=== PATIENT | male | born 1950 | race Caucasian/White ===

== ENCOUNTER 2019-03-08 19:20 | Inpatient (IN) | payer OTHER ==
[~2019-03-08] VITALS: Ht 182.9 cm; Wt 152.7 kg
[2019-03-08] MEDS ORDERED: CEFEPIME 2GM/50 ML (PMX) 50 ML IVPB STA (19:27)
[2019-03-08] MEDS ORDERED: SODIUM CHLORIDE 0.9% 1L BAG IV* STA (19:27)
[2019-03-08] MEDS ORDERED: VANCOMYCIN 1 GM (PMX) 250 ML IVPB ONE (19:30)
[2019-03-08] MEDS ORDERED: ONDANSETRON 4 MG INJ ONE (20:33)
[2019-03-08] MEDS ORDERED: ACETAMINOPHEN 325 MG TAB PO PRN ×2 (21:00→22:00)
[2019-03-08] MEDS ORDERED: morphine 10 MG INJ IV ONE (21:00)
[2019-03-08] MEDS ORDERED: ONDANSETRON 4 MG INJ IV PRN (21:00)
--- NOTE | 2019-03-08 21:09 | ERD ---
ER Documentation Chief Complaint Chief Complaint bib ra from street, syncope x 2, sob, low o2 sat, aloc, acuchek 180 HPI 68-year-old male brought in by ambulance after he had 2 syncopal episodes at home. He was reportedly altered, staring into space and nonresponsive. His oxygen saturation was 90% and he was hypotensive. Accu-Chek was 180. He was started on BiPAP and brought to the ER for evaluation. EKG showed a paced rhyth m. There was concern for possible STEMI. When the patient arrived, he denies any chest pain. He is more awake and oriented per EMS than he was when they first picked him up. Patient denies any chest pain. He only complains of lightheadedness and dizziness. No headache, shortness of breath, recent fevers or chills. He is urinating normally. Family later arrived at bedside and states that the patient always has low blood pressure and is "dying". He is a [facility] patient. He has end-stage heart failure ROS All systems reviewed and are negative except as per history of present illness. Allergies Allergies: Uncoded Allergies: IV CONTRAST (Allergy, Unknown, 03/08/19) PMhx/Soc History of Surgery: Yes (CABG) Anesthesia Reaction: No Hx Neurological Disorder: Yes (diabetic neuropathy ) Hx Respiratory Disorders: No (copd, ) Hx Cardiac Disorders: Yes (hx of mi x 2, chf, EF 25%, severe mitral regurg, moderate tricuspid regurg. Paroxysmal A. fib) Hx Psychiatric Problems: No Hx Miscellaneous Medical Probl: No Hx Substance Use: No Hx Tobacco Use: No Smoking Status: Never smoker FmHx Family History: No diabetes Physical Exam Vitals Vital Signs Date Temp Pulse Resp B/P (MAP) Pulse Ox O2 O2 Flow FiO2 Time Delivery Rate 03/08/19 98.5 69 20 69/47 (54) 100 Room Air 20:15 03/08/19 98.5 70 20 83/52 (62) 100 Room Air 19:51 03/08/19 98.1 70 15 87/52 (64) 97 Room Air 19:30 03/08/19 98.1 74 15 147/122 97 19:22 (130) Physical Exam Const: Chronically ill-appearing, on BiPAP Head: Atraumatic Eyes: Normal Conjunctiva, PERRLA, EOMI ENT: Dry mucous membranes. Normal External Ears, Nose and Mouth. Neck: Full range of motion. No meningismus. No C-spine tenderness Resp: Clear to auscultation bilaterally Cardio: Regular rate and rhythm, no murmurs Abd: Obese. Soft, non tender, non distended. Normal bowel sounds Skin: bilateral lower extremities with chronic venous stasis changes and skin breakdown. No ulcers or evidence of cellulitis Back: No midline or flank tenderness Ext: No cyanosis, symmetric l lower extremity venous stasis changes, edema bilaterally Neuro: Awake and alert, normal speech, no dysarthria, moving all extremities spontaneously. No facial asymmetry Psych: Normal Mood and Affect Result Diagram: 03/08/19192403/08/191924 Results 24 hrs Laboratory Tests Test 03/08/19 19:25 03/08/19 19:27 03/08/19 19:31 03/08/19 19:41 White Blood Count 5.1 10^3/ul Red Blood Count 2.50 10^6/ul Hemoglobin 8.6 g/dl Hematocrit 25.7 % Mean Corpuscular 102.8 fl Volume Mean Corpuscular 34.4 pg Hemoglobin Mean Corpuscular 33.5 g/dl Hemoglobin Concen t Red Cell 17.3 % Distribution Width Platelet Count 156 10^3/UL Mean Platelet 10.4 fl Volume Immature 0.600 % Granulocytes % Neutrophils % 75.4 % Lymphocytes % 12.9 % Monocytes % 10.3 % Eosinophils % 0.6 % Basophils % 0.2 % Nucleated Red 0.0 /100WBC Blood Cells % Immature 0.030 10^3/ul Granulocytes # Neutrophils # 3.8 10^3/ul Lymphocytes # 0.7 10^3/ul Monocytes # 0.5 10^3/ul Eosinophils # 0.0 10^3/ul Basophils # 0.0 10^3/ul Nucleated Red 0.0 10^3/ul Blood Cells # Prothrombin Time 24.0 Sec Prothrombin Time 1.9 Ratio INR International 2.14 Normalized Ratio Activated 53.2 Sec Partial Thrombopl ast Time D-Dimer 440.01 ng/ml D-Dimer Comment Sodium Level 132 mmol/L Potassium Level 4.8 mmol/L Chloride Level 97 mmol/L Carbon Dioxide 18 mmol/L Level Anion Gap 17 Blood Urea 85 mg/dl Nitrogen Creatinine 2.40 mg/dl Est Glomerular 27 mL/min Filtrat Rate mL/min Glucose Level 136 mg/dl Calcium Level 8.6 mg/dl Total Bilirubin 0.2 mg/dl Direct Bilirubin 0.00 mg/dl Indirect 0.2 mg/dl Bilirubin Aspartate Amino 37 IU/L Transf (AST/SGOT) Alanine 22 IU/L Aminotransferase (ALT/SGPT) Alkaline 161 IU/L Phosphatase Troponin I 0.166 ng/ml B-Type 4180 PG/ML Natriuretic Peptide Total Protein 6.6 g/dl Albumin 3.5 g/dl Globulin 3.10 g/dl Albumin/Globulin 1.12 Ratio Blood Gas Blood venous Specimen Source Arterial Blood 03/08/2019 8:20:30 Date Drawn PM Arterial Blood VENOUS LINE Gas Puncture Site [place] Test N/A Venous Blood pH 7.320 Venous Blood pCO2 41.9 mmHG (Temp Corrected) Venous Blood pO2 33.0 mmHG (Temp Corrected) Venous Blood HCO3 21.1 mmol/L Venous Blood 54.2 mmHG Oxygen Saturation Venous Blood Base -4.7 mmol/L Excess Venous Blood 8.9 g/dl Total Hemoglobin Venous Blood 53.8 % Oxyhemoglobin Venous Blood 0.4 % Methemoglobin Carboxyhemoglobin 0.3 % Blood Gas 37.0 C Temperature Blood Gas NASAL CANNULA Modality FiO2 33.0 % Blood Gas MG Notified Whom Blood Gas 03/08/2019 8:28:04 Notified Time PM POC Venous 4.3 mmol/L Lactate Bedside Glucose 146 mg/dL Current Medications Medications Dose Sig/Lydia Start Time Status Last (Trade) Ordered Route PRN Stop Time Admin Dose Reason Admin Sodium 2,120 ml BOLUS OVER 2 03/08/19 DC 03/08/19 Chloride HOURS STAT 19:27 03/08/19 19:39 (NS) IV* 19:31 Cefepime HCl 50 ml @ ONCE STAT 03/08/19 DC 03/08/19 100 mls/hr IVPB 19:27 03/08/19 19:39 19:56 Vancomycin 250 ml @ ONCE ONCE 03/08/19 03/08/19 HCl 125 mls/hr IVPB 19:30 03/08/19 20:09 21:29 Ondansetron 4 mg STK-MED 03/08/19 DC HCl (Zofran ONCE .ROUTE 20:33 03/08/19 Inj) 20:34 Ondansetron 4 mg ER BRIDGE 03/08/19 03/08/19 HCl (Zofran PRN IV 21:00 03/09/19 20:40 Inj) NAUSEA/VOMITI 20:59 NG 650 mg ER BRIDGE 03/08/19 Acetaminophen PRN PO 21:00 03/09/19 (Tylenol .MILD PAIN 20:59 Tab) 1-3 OR TEMP Morphine 6 mg ONCE ONCE 03/08/19 03/08/19 Sulfate IV 21:00 03/08/19 20:49 (morphine) 21:01 Procedures/MDM EMERGENT LABS AND DIAGNOSTIC STUDIES: Lab Results above were reviewed and interpreted by me. CBC: anemia. no evidence of infection BMP: Elevated BUN and creatinine, consistent with acute kidney failure. Mild acidosis. No e/o clinically significant electrolyte abnormality, alkalosis, diabetic ketoacidosis Troponin elevated, which may be due to NSTEMI versus renal failure versus hypoperfusion due to hypotension Lactate elevated, likely secondary to tissue hypoperfusion. Less likely sepsis 12-lead EKG was interpreted by Harish Carver MD: AV paced rhythm at 60 bpm Left bundle branch block morphology No acute ST or T wave changes suggestive of acute ischemia or STEMI. Radiology Results as interpreted by Radiology below were reviewed by Consuelo Carver MD: Chest x-ray shows evidence of mild pulmonary vascular congestion with severe cardiomegaly Initial Nursing notes reviewed. Previous Medical Records requested via the Electronic Health Record. EMERGENCY DEPARTMENT COURSE / MEDICAL DECISION MAKING: Patient presents after 2 syncopal episodes with altered mental status in the field, now improved. He was taken off BiPAP and was stable on supplemental oxygen. Vitals were notable for hypotension. He was started on IV fluids and sepsis workup was initiated. However no other source of infection at this time. Broad-spectrum antibiotics were started initially but no source of infection found. Family later arrived and states that the patient is usually hypotensive at baseline. I confirmed this with the [place] physician. Per [place], the pa lenin has heart failure with normal systolic in the 80s-90s. He is reportedly DNR. I confirmed this with the patient and family. He states that he just wants to be kept comfortable and may get out of the hospital but he does not want any heroic measures or anything invasive. Labs today are consistent with acute renal failure. He likely has lactic acidosis secondary to hypotension and hypoperfusion. He also had seizure-like activity after 1 of his syncopal episodes per family.He also had an elevated troponin, likely secondary to the same reason. At this time, I have a low suspicion for serious bacterial infection. Patient will be admitted for stabilization. Accepting Care Team: Current data and ongoing care discussed. Time: Time of admission Primary Provider: Dr. Wesley Critical Care Time: 35 minutes Treatments/Evaluations: Close monitoring and treatment of unstable vital signs, cardiorespiratory, and neurologic status, while maintaining tight balance of fluid, respiratory, and cardiac interventions. This time includes discussing the case with the patient and the patients family. This time does not include all procedures stated elsewhere in this record. This time also includes reviewing old records, labs and radiological studies. This time includes examining and re- examining the patient. Additionally, this time also includes arranging care with admitting and consulting physicians. Departure Diagnosis: Primary Impression: Syncope Syncope type: unspecified Qualified Codes: R55 - Syncope and collapse Additional Impressions: Hypotension Hypotension type: unspecified hypotension type Qualified Codes: I95.9 - Hypotension, unspecified Acute on chronic renal failure Acute renal failure type: unspecified Chronic kidney disease stage: unspecified stage Qualified Codes: N17.9 - Acute kidney failure, unspecified; N18.9 - Chronic kidney disease, unspecified Non-STEMI (non-ST elevated myocardial infarction) Lactic acidosis Condition: Serious JUAN CARVER MD Mar 08, 2019 21:07
[2019-03-08] MEDS ORDERED: morphine 4 MG/ML VIAL IV STA (21:11)
--- NOTE | 2019-03-08 21:32 | HP ---
Date/Time of Note Date/Time of Note DATE: 03/08/19 TIME: 21:32 Assessment/Plan VTE Prophylaxis SCD applied (from Ns): No SCD contraindicated: other Pharmacological prophylaxis: heparin Lines/Catheters [facility] [place] [place] Assessment/Plan Hospital Course This is a 68-year-old male being admitted to the telemetry floor for: #1 volume overload : Secondary to severe systolic CHF, chronic kidney disease. Patient has AICD. Will check an echocardiogram to assess heart function. Patient did receive 2 L of normal saline in the emergency department. Will stop normal saline. Will give the patient albumin as well as metolazone and Lasix for aggressive IV diuresis. Given patient's low blood pressures as well will give patient p.o. Midodrine. Monitor urine output. Will consult cardiology dr. rucker. Will check an abdominal ultrasound to assess for need for therapeutic paracentesis. venous dopplers bilaterally to rule out dvt. #2 syncopal episode: Likely multifactorial secondary to low blood pressures along with severe CHF exacerbation. Will check an echocardiogram, will check carotid Dopplers. #3 elevated troponin: Type I versus type II. Patient denies any chest pain. Given his syncope will trend cardiac enzymes. This likely could be a type II in the setting of volume overload state as well as chronic kidney disease. Check an echocardiogram #4 acute on chronic CHF exacerbation:, Will check an echocardiogram, diuresis, please see #1. #5 lactic acidosis: Likely secondary to hypoxia, hypoperfusion, volume overload state. Patient did receive 2 L of normal saline however patient does appear to be severely volume overloaded. Will hold any further administration of IV fluids. We will give the patient aggressive IV diuresis. Patient does have urinary tract infection. Will treat with ceftriaxone 1 g every 24 hours. #6 hypotension: Patient does have a history of low blood pressures, that also likely is a component of volume overload state. Will provide Midodrine, consult cardiology and neurology. #7 chronic kidney disease stage III: I do not have a baseline creatinine. Current creatinine is 2.4. Patient is significantly volume overloaded. We will give the patient Zaroxolyn as well as Lasix and albumin for fluid diuresis. Wi ll consult nephrology. Will avoid nephrotoxic agents. Avoid NSAIDs. Renal ultrasound. No BESSIE inhibitor at the current time until were able to establish his baseline. #8 coronary urgency: Patient has a history of MD x2, CABG. will need to confirm patient's home medications and resume. Patient has a pacemaker/AICD. #9 History of atrial fibrillation: Currently patient is in a paced rhythm. We will need to find out if patient is on anticoagulation. #10 hyponatremia: Secondary likely to volume older state, IV diuresis monitor serum sodium level #11 macrocytic anemia: No signs of bleeding at the current time. Follow-up outpatient #12 prediabetes: Check hemoglobin A1c #13 morbid obesity: We will check hemoglobin A 1C, lipid panel, TSH DVT GI prophylaxis: Heparin subcu, no GI prophylaxis indicated CODE STATUS: Patient is a DNR/DNI as per the family. Family does not want aggressive treatment such as central line for any procedures for either. Further treatment strategy will be implemented as per the clinical course. We will need to confirm with the family regarding patient's home medications and resume as indicated, patient is a [facility] patient and will need to transfer the patient once he is deemed stable. Result Diagram: 03/08/19192403/08/191924 Results 24hrs Laboratory Tests Test 03/08/19 19:25 03/08/19 19:27 03/08/19 19:31 03/08/19 19:41 White Blood Count 5.1 Red Blood Count 2.50 L Hemoglobin 8.6 L Hematocrit 25.7 L Mean Corpuscular 102.8 H Volume Mean Corpuscular 34.4 H Hemoglobin Mean Corpuscular 33.5 Hemoglobin Concent Red Cell 17.3 H Distribution Width Platelet Count 156 Mean Platelet 10.4 Volume Immature 0.600 H Granulocytes % Neutrophils % 75.4 Lymphocytes % 12.9 L Monocytes % 10.3 Eosinophils % 0.6 Basophils % 0.2 Nucleated Red 0.0 Blood Cells % Immature 0.030 Granulocytes # Neutrophils # 3.8 Lymphocytes # 0.7 L Monocytes # 0.5 Eosinophils # 0.0 Basophils # 0.0 Nucleated Red 0.0 Blood Cells # Prothrombin Time 24.0 H Prothrombin Time 1.9 Ratio INR International 2.14 Normalized Ratio Activated 53.[address] Time D-Dimer 440.01 D-Dimer Comment Sodium Level 132 L Potassium Level 4.8 Chloride Level 97 Carbon Dioxide 18 L Level Anion Gap 17 H Blood Urea 85 H Nitrogen Creatinine 2.40 H Est Glomerular 27 L Filtrat Rate mL/min Glucose Level 136 Calcium Level 8.6 Total Bilirubin 0.2 Direct Bilirubin 0.00 Indirect Bilirubin 0.2 Aspartate Amino 37 Transf (AST/SGOT) Alanine 22 Aminotransferase ( ALT/SGPT) Alkaline 161 H Phosphatase Troponin I 0.166 *H B-Type Natriuretic 4180 H Peptide Total Protein 6.6 Albumin 3.5 Globulin 3.10 Albumin/Globulin 1.12 Ratio Blood Gas Specimen Blood venous Source Arterial Blood 03/08/2019 8:20:30 Date Drawn PM Arterial Blood Gas VENOUS LINE Puncture Site [place] Test N/A Venous Blood pH 7.320 L Venous Blood pCO2 41.9 (Temp Corrected) Venous Blood pO2 33.0 H (Temp Corrected) Venous Blood HCO3 21.1 L Venous Blood 54.2 L Oxygen Saturation Venous Blood Base -4.7 Excess Venous Blood Total 8.9 Hemoglobin Venous Blood 53.8 Oxyhemoglobin Venous Blood 0.4 Methemoglobin Carboxyhemoglobin 0.3 Blood Gas 37.0 Temperature Blood Gas Modality NASAL CANNULA FiO2 33.0 Blood Gas Notified MG Whom Blood Gas Notified 03/08/2019 8:28:04 Time PM POC Venous Lactate 4.3 *H Bedside Glucose 146 HPI/ROS Admit Date/Time Admit Date/Time Hx of Present Illness cc; syncope, This is a 68-year-old male brought in by ambulance after he had 2 syncopal episodes at home. He was reportedly altered, staring into space and nonresponsive. His oxygen saturation was 90% and he was hypotensive. Accu-Chek was 180. He was started on BiPAP and brought to the ER for evaluation. EKG showed a paced rhythm. When the patient arrived, he denies any chest pain. He is more awake and oriented per EMS than he was when they first picked him up. Patient denies any chest pain. He only complains of lightheadedness and dizziness. He does report that over the last week he has been feeling slightly short of breath at times. Family later arrived at bedside and states that the patient always has low blood pressure and is "dying". He is a [facility] patient. He does have a history of chronic kidney disease stage III along with CHF and has an AICD as per the family. Family does report that the patient does have low blood pressures at home. They also reports that he does ambulate though it is limited at home. He is also been dealing with cellulitis of his right thigh which she was on antibiotics for. Allergies: IV contrast Medications: See JAN ROS Const: As per HPI Eyes : No pain discharge or redness or change in visual acuity ENT: No pain, sore throat, congestion, congestion, dysphagia or discharge Respiratory: As per HPI Cardiovascular: As per HPI GI : no change in appetite, abdominal pain, nausea, vomiting, diarrhea, constip ation, or change in the color his stool Genitourinary: No dysuria, hematuria, flank pain , discharge or CVA tenderness Musculoskeletal: No joint pain, back pain, neck pain, restricted range of motion in neck or joints Skin: As per HPI Neuro: No headache, dizziness, syncope, seizure, focal weakness Endocrine: No polyuria, polydipsia, temperature intolerance Psych: No hallucination, depression, anxiety or suicidal ideation PMH/Family/Social Past Medical History Systolic CHF, chronic kidney disease stage III, AICD, coronary disease, MD x2, A. fib, prediabetes Medications Current Medications Ondansetron HCl (Zofran Inj) 4 mg ER BRIDGE PRN IV NAUSEA/VOMITING Last administered on 03/08/19at 20:40; Admin Dose 4 MG; Start 03/08/19 at 21:00; Stop 03/09/19 at 20:59 Acetaminophen (Tylenol Tab) 650 mg ER BRIDGE PRN PO .MILD PAIN 1-3 OR TEMP; Start 03/08/19 at 21:00; Stop 03/09/19 at 20:59 Uncoded Allergies: IV CONTRAST (Allergy, Unknown, 03/08/19) Past Surgical History CABG, cardioversion, cardiac stents Family History Significant Family History: no pertinent family hx Social History Alcohol Use: none Smoking Status: Never smoker Drug Use: none Exam/Review of Systems Vital Signs Vitals Vital Signs Date Temp Pulse Resp B/P (MAP) Pulse Ox O2 O2 Flow FiO2 Time Delivery Rate 03/08/19 70 19 88/54 (65) 100 Nasal 3.5 21:00 Cannula 03/08/19 98.5 20:15 Exam Exam General: Patient is currently lying in bed he does not appear to be in any acute distress, HEENT: Atraumatic, normocephalic. The pupils are equal, round and reactive. Extraocular motor are intact Neck: Supple with full range of motion. Distended neck veins Chest: Nontender Lungs: Bilateral rales and crackles, nonlabored breathing Heart: Normal S1-S2, Regular rhythm and rate. Positive JVD Abdomen: Morbidly obese, abdominal distention with possible ascites, nondistended , bowel sounds are present. No guarding no rebound tenderness , No masses or organomegaly. No costovertebral temporal angle mass Extremities: Bilateral 3+ pitting edema of the lower extremities, chronic venous stasis changes Neurologic: Normal mental status, speech normal, cranial nerves II through XII are intact, motor and sensory are intact, Additional Comments PROCEDURE: XR Chest. CLINICAL INDICATION: Syncope TECHNIQUE: Single portable view of the chest was obtained COMPARISON: None FINDINGS: There is moderate cardiomegaly. There is a left-sided pacemaker / AICD in place. There is mild pulmonary vascular congestion. There are bilateral perihilar and lower lobe increased interstitial changes. There is no pleural effusion.. There is no pneumothorax. RPTAT: AA IMPRESSION: Moderate cardiomegaly with mild pulmonary vascular congestion. .Kelton Mike MD, MD Date Time Electronically viewed and signed by .Kelton Mike MD, MD on 03/08/2019 20:14 .S/ CC: JUAN RUTLEDGE MD [id number] ekg AV paced rhythm at 60 bpm Left bundle branch block morphology No acute ST or T wave changes suggestive of acute ischemia or STEMI. JOHNNIE KIRKLAND Mar 08, 2019 21:32
[2019-03-08] MEDS ORDERED: DOCUSATE SODIUM 100 MG CAP PO PRN (22:00)
[2019-03-08] MEDS ORDERED: MIDODRINE 5 MG TAB PO ONE (22:00)
[2019-03-08] MEDS ORDERED: NACL 0.9% 3 ML SYG IV SCH (22:00)
[2019-03-08] MEDS ORDERED: BISACODYL (EC) 5 MG TAB PO PRN (22:00)
[2019-03-08 22:22] VITALS: PULSE 70
[2019-03-08 22:38] VITALS: Ht 182.9 cm; Wt 152.7 kg
[2019-03-08 22:40] VITALS: BP 94/55; PULSE 70; RESP 20
[2019-03-08] MEDS ORDERED: METOLAZONE 5 MG TAB PO ONE (23:00)
[2019-03-08] MEDS ORDERED: FUROSEMIDE 40 MG INJ IV ONE (23:30)
[2019-03-08] MEDS: ALBUMIN HUMAN 25% 100 ML IV SCH (23:36)
[2019-03-08] MEDS: HEPARIN 5,000 UNIT/1 ML VIAL SC SCH (23:51)
[2019-03-09] VITALS (11 sets, daily range): BP systolic 83–124; BP diastolic 49–70; PULSE 63–74; RESP 16–20
[2019-03-09] MEDS ORDERED: traMADol 50 MG TAB PO PRN (01:00)
[2019-03-09] MEDS: ALBUMIN HUMAN 25% 100 ML IV SCH (01:14)
[2019-03-09] MEDS: MIDODRINE 5 MG TAB PO SCH ×3 (05:10→21:36)
[2019-03-09] MEDS: HEPARIN 5,000 UNIT/1 ML VIAL SC SCH ×2 (05:16→14:20)
[2019-03-09] MEDS ORDERED: CEFTRIAXONE 1 GM/50 ML (PMX) 50 ML IVPB SCH (07:30)
--- NOTE | 2019-03-09 09:16 | CONS ---
DATE OF ADMISSION: 03/08/2019 DATE OF CONSULTATION: 03/09/2019 TYPE OF CONSULTATION: Nephrology. REASON FOR CONSULTATION: Acute kidney injury, CKD. PHYSICIAN REQUESTING CONSULT: Dr. Kirkland. HISTORY OF PRESENT ILLNESS: This is a 68-year-old male with a past medical history of chronic kidney disease, unknown baseline creatinine, history of congestive heart failure, history of coronary arter y disease, history of AFib, history of diabetes who presents to [facility] after a syncopal episode. The patient reported that he was altered. Had a noted syncopal episode. EMS serv ices were called. The patient was placed on BiPAP, brought into the emergency room. Upon arrival, t he patient was complaining of lightheadedness, dizziness. In the emergency room, the patient had lab oratory data drawn which showed an elevated lactic acid. The patient also had a chest x-ray which sh owed moderate cardiomegaly and vascular congestion. The patient was initially treated with IV fluids and admitted to telemetry. The patient's lactic acid levels were trending down. The patient, [facility], was noted to be markedly volume overloaded and started on diuretic therapy. In terms of patient's renal history, the patient states he has underlying CKD. He is unaware of his baseline creatinine. The patient denies any hemoptysis, hematemesis, any rashes. PAST MEDICAL HISTORY: History of CKD, history of CHF, history of coronary artery disease, history of arrhythmia. PAST SURGICAL HISTORY: Includes CABG. FAMILY HISTORY: No family history of kidney disease. SOCIAL HISTORY: Does not drink, smoke, do drugs. MEDICATIONS: The patient's medications have been reviewed. REVIEW OF SYSTEMS: A 14-point review of systems was conducted. Pertinent positives stated in HPI, o therwise negative. PHYSICAL EXAMINATION: VITAL SIGNS: Blood pressure is 83/51, respiration 18, pulse 69, temperature 98.2. HEENT: Head is normocephalic. NECK: Supple. HEART: Regular rate. LUNGS: Show diminished breath sounds at the base. ABDOMEN: Soft, nontender to palpation without rebound or guarding. EXTREMITIES: Negative for clubbing, cyanosis. Diffuse edema. DERMATOLOGIC: No rashes. MUSCULOSKELETAL: No joint effusions. NEUROLOGIC: Limited exam, but no focal deficits. MEDICATIONS: The patient's medications have been reviewed. LABORATORY DATA: From 03/08/2019 was reviewed. The patient's sodium 132, BUN 85, creatinine 2.40. CBC was reviewed. Chest x-ray was reviewed. Urinalysis was reviewed. ASSESSMENT AND PLAN: This is a 68-year-old male who presents with: 1. Nonoliguric acute kidney injury with unknown baseline creatinine. Etiology of acute kidney injur y is possibly multifactorial secondary to hemodynamics, possible cardiorenal syndrome. The possibili ty of tubular injury or interstitial nephritis is a consideration as the patient's urinalysis does sh ow significant pyuria and hematuria. Plan at this point is to do a full evaluation. We will repeat a UA with microanalysis. Will quantify patient's proteinuria. Will check urine electrolytes, calcul ate a fractional excretion of urea. We will check a renal ultrasound. Would continue current diuret ic regimen, but otherwise monitor renal function closely. Continue supportive care, renally dose all meds, avoid nephrotoxins. 2. Hyponatremia secondary to acute kidney injury causing decreased free water urinary excretion. Th e patient will be placed on a free water restriction, monitor closely on diuretic therapy. May also consider discontinuing metolazone which can also cause hyponatremia. 3. Anemia. Monitor hemoglobin and hematocrit levels. 4. Mineral bone disorder, monitor calcium and phosphorus levels. 5. Acute decompensated heart failure. The patient is grossly volume overloaded. Continue current d iuretic regimen. Monitor hemodynamics, electrolytes closely. 6. Hypertension. Etiology may be secondary to congestive heart failure. Continue current medical m anagement, continue diuretic therapy. If the patient's blood pressure should further decline, he may require ionotropic support. Consider cardiology evaluation. 7. Lactic acidosis, etiology secondary to hemodynamics, CHF. The patient is currently on diuretic t herapy. The patient may require inotropic support. Monitor and trend lactic acid levels closely. 8. Non-STEMI. Continue medical management. 9. Systemic inflammatory response syndrome, possible sepsis. Underlying source unclear. Chest x-ra ys were reviewed. Questionable cellulitis. Continue to monitor. Continue antibiotic therapy. Thank you, Dr. Kirkland, for this interesting consult. It will be a pleasure to follow the patient wi th you throughout the hospital course. Dictated By: MARY ARMANDO DO NR/NTS Conf#: [id number] DID#: [id number] CC: JESUS PEDRO MD; JOHNNIE KIRKLAND MD;*[facility]*
[2019-03-09] MEDS: FUROSEMIDE 40 MG INJ IV SCH ×2 (11:19→17:37)
--- NOTE | 2019-03-09 13:40 | PN ---
Date/Time of Note Date/Time of Note DATE: 03/09/19 TIME: 13:40 Assessment/Plan VTE Prophylaxis Risk score (from Ns)>0 risk: 8 SCD applied (from [facility] No SCD contraindicated: other Pharmacological prophylaxis: heparin Lines/Catheters IV Catheter Type [facility]from [facility] Saline Lock Urinary Cath still in place: Yes Reason Cath still needed: other (indicate) Assessment/Plan Hospital Course Subjective : nicole is tugging, feels the need to urinate depite nicole , change to condom cath o: General: A&O x3, answering questions appropriately, lethargic, "cranky ?", obese HEENT: NC/ AT. PERRL. EOM intact Neck: JVD CVS: irregular, sytolic murmur . no pain on chest wall palpation Lungs: CTA b/l. no wheezing or rhonchi Abd: soft, nontender, +BS Ext: moving all extremities skin: erickson LE edema with chronic skin changes : nicole to bedside drainage with good output assessment and plan: 68 yo M with reported hx of endstage HF who was BIBA after a syncopal episode (altered, staring into space) with resp distress managed as follows : Acute hypoxic resp failure that required short course on NIPPV: improved Syncopal episode 2/2 #1 CHF exacerbation, acute on chronic, systolic and diastolic Chronic severe CM with -severe enlargement of left atrium and moderate enlargement of right atrium, moderate right ventricular systolic dysfunction / Severe enlargement of right ventricle. -Ejection fraction is visually estimated at 25 % and Stage II diastolic dysfunction -S/p Pacemaker / AICD Moderate mitral valve regurgitation. NSTEMI vs troponin leak CAD with hx of MIx2, CABG Lactic acidosis likely 2/2 hypoperfusion MAYDA on CKD with hyperkalemia hx of afib s/p "shock treatment:" Megaloblastic anemia ' UTI low HDL Hyponatremia , likely dilutional Quit smoking 1992 PLAN: Continue tele, diuresis and empiric abx await cardio review and recs, also cardio needs to clear if patient is stable for transfer to [place] Patient resides at home and is usually ambulant with a cane, will get PT eval Nephrology consult as well serial labs supportive care Result Diagram: 03/09/19 0958 03/[birth year]/1958 Results 24hrs Laboratory Tests Test 03/08/19 19:25 03/08/19 19:27 03/08/19 19:31 03/08/19 19:41 White Blood 5.1 Count Red Blood Count 2.50 L Hemoglobin 8.6 L Hematocrit 25.7 L Mean Corpuscular 102.8 H Volume Mean Corpuscular 34.4 H Hemoglobin Mean Corpuscular 33.5 Hemoglobin Nina nt Red Cell 17.3 H Distribution Width Platelet Count 156 Mean Platelet 10.4 Volume Immature 0.600 H Granulocytes % Neutrophils % 75.4 Lymphocytes % 12.9 L Monocytes % 10.3 Eosinophils % 0.6 Basophils % 0.2 Nucleated Red 0.0 Blood Cells % Immature 0.030 Granulocytes # Neutrophils # 3.8 Lymphocytes # 0.7 L Monocytes # 0.5 Eosinophils # 0.0 Basophils # 0.0 Nucleated Red 0.0 Blood Cells # Prothrombin Time 24.0 H Prothrombin Time 1.9 Ratio INR 2.14 International Normalized Ratio Activated 53.2 H Partial Thrombop last Time D-Dimer 440.01 D-Dimer Comment Sodium Level 132 L Potassium Level 4.8 Chloride Level 97 Carbon Dioxide 18 L Level Anion Gap 17 H Blood Urea 85 H Nitrogen Creatinine 2.40 H Est Glomerular 27 L Filtrat Rate mL/min Glucose Level 136 Calcium Level 8.6 Total Bilirubin 0.2 Direct Bilirubin 0.00 Indirect 0.2 Bilirubin Aspartate Amino 37 Transf (AST/SGOT ) Alanine 22 Aminotransferase (ALT/SGPT) Alkaline 161 H Phosphatase Troponin I 0.166 *H B-Type 4180 H Natriuretic Peptide Total Protein 6.6 Albumin 3.5 Globulin 3.10 Albumin/Globulin 1.12 Ratio Blood Gas Blood venous Specimen Source Arterial Blood 03/08/2019 8:20:30 Date Drawn PM Arterial Blood VENOUS LINE Gas Puncture Site [place] Test N/A Venous Blood pH 7.320 L Venous Blood 41.9 pCO2 (Temp Corrected) Venous Blood pO2 33.0 H (Temp Corrected) Venous Blood 21.1 L HCO3 Venous Blood 54.2 L Oxygen Saturation Venous Blood -4.7 Base Excess Venous Blood 8.9 Total Hemoglobin Venous Blood 53.8 Oxyhemoglobin Venous Blood 0.4 Methemoglobin Carboxyhemoglobi 0.3 n Blood Gas 37.0 Temperature Blood Gas NASAL CANNULA Modality FiO2 33.0 Blood Gas MG Notified Whom Blood Gas 03/08/2019 8:28:04 Notified Time PM POC Venous 4.3 *H Lactate Bedside Glucose 146 Test 03/08/19 21:40 03/08/19 23:02 03/09/19 05:47 03/09/19 09:20 Lactic Acid 2.1 *H Level Creatine Kinase 32 23 Creatine Kinase 3.0 4.0 Index Creatinine 0.95 0.93 Kinase MB (Mass) Troponin I 0.152 *H 0.195 *H White Blood 4.3 L Count Red Blood Count 2.36 L Hemoglobin 8.0 L Hematocrit 24.3 L Mean Corpuscular 103.0 H Volume Mean Corpuscular 33.9 H Hemoglobin Mean Corpuscular 32.9 Hemoglobin Nina nt Red Cell 17.6 H Distribution Width Platelet Count 125 L Mean Platelet 10.5 H Volume Immature 0.200 Granulocytes % Neutrophils % 73.8 Lymphocytes % 11.1 L Monocytes % 13.9 H Eosinophils % 0.5 Basophils % 0.5 Nucleated Red 0.0 Blood Cells % Immature 0.010 Granulocytes # Neutrophils # 3.1 Lymphocytes # 0.5 L Monocytes # 0.6 Eosinophils # 0.0 Basophils # 0.0 Nucleated Red 0.0 Blood Cells # Sodium Level 134 L Potassium Level 5.2 H Chloride Level 101 Carbon Dioxide 20 L Level Anion Gap 13 Blood Urea 89 H Nitrogen Creatinine 2.21 H Est Glomerular 30 L Filtrat Rate mL/min Glucose Level 95 # Hemoglobin A1c 5.7 Calcium Level 8.5 Magnesium Level 2.8 H Total Bilirubin 0.4 Direct Bilirubin 0.00 Indirect 0.4 Bilirubin Aspartate Amino 47 H Transf (AST/SGOT ) Alanine 23 Aminotransferase (ALT/SGPT) Alkaline 134 H Phosphatase Total Protein 6.1 Albumin 3.5 Globulin 2.60 Albumin/Globulin 1.34 Ratio Triglycerides 31 Level Cholesterol 97 L Level LDL Cholesterol, 66 Calculated HDL Cholesterol 25 L Cholesterol/HDL 3.8 Ratio Thyroid 2.610 Stimulating Hormone (TSH) Urine Color YELLOW Urine Clarity SLIGHTLY CLOUDY A Urine pH 6.0 Urine Specific 1.010 Niles Urine Ketones NEGATIVE Urine Nitrite NEGATIVE Urine Bilirubin NEGATIVE Urine 1+ H Urobilinogen Urine Leukocyte 2+ H Esterase Urine > 182 H Microscopic RBC Urine 86 H Microscopic WBC Urine Bacteria FEW A Urine Mucus FEW A Urine Hemoglobin 3+ H Urine Random 74.35 Creatinine Urine Random 46 Sodium Urine Glucose NEGATIVE Urine Total 103.0 H Protein Test 03/09/19 09:58 White Blood 4.4 L Count Red Blood Count 2.40 L Hemoglobin 8.2 L Hematocrit 24.7 L Mean Corpuscular 102.9 H Volume Mean Corpuscular 34.2 H Hemoglobin Mean Corpuscular 33.2 Hemoglobin Nina nt Red Cell 17.4 H Distribution Width Platelet Count 139 L Mean Platelet 10.7 H Volume Immature 0.700 H Granulocytes % Neutrophils % 77.6 H Lymphocytes % 9.6 L Monocytes % 11.2 H Eosinophils % 0.7 Basophils % 0.2 Nucleated Red 0.0 Blood Cells % Immature 0.030 Granulocytes # Neutrophils # 3.4 Lymphocytes # 0.4 L Monocytes # 0.5 Eosinophils # 0.0 Basophils # 0.0 Nucleated Red 0.0 Blood Cells # Sodium Level 135 Potassium Level 4.9 Chloride Level 101 Carbon Dioxide 24 Level Anion Gap 10 Blood Urea 87 H Nitrogen Creatinine 2.45 H Est Glomerular 26 L Filtrat Rate mL/min Glucose Level 103 Lactic Acid 1.1 Level Calcium Level 8.8 Total Bilirubin 0.5 Direct Bilirubin 0.00 Indirect 0.5 Bilirubin Aspartate Amino 30 Transf (AST/SGOT ) Alanine 27 Aminotransferase (ALT/SGPT) Alkaline 137 H Phosphatase Creatine Kinase 26 Creatine Kinase 3.4 Index Creatinine 0.88 Kinase MB (Mass) Troponin I 0.215 *H Total Protein 6.3 Albumin 3.5 Globulin 2.80 Albumin/Globulin 1.25 Ratio Exam/Review of Systems Exam Vitals Vital Signs Date Temp Pulse Resp B/P (MAP) Pulse Ox O2 O2 Flow FiO2 Time Delivery Rate 03/09/19 70 13:16 03/09/19 97.8 20 124/70 96 High Flow 11:24 (88) 03/08/19 3.5 21:40 Intake and Output 03/08/19 03/08/19 03/09/19 1515:00 23:00 07:00 IntakeIntake Total 350 ml OutputOutput Total 650 ml BalanceBalance -300 ml Results Results 24hrs Laboratory Tests Test 03/08/19 19:25 03/08/19 19:27 03/08/19 19:31 03/08/19 19:41 White Blood 5.1 Count Red Blood Count 2.50 L Hemoglobin 8.6 L Hematocrit 25.7 L Mean Corpuscular 102.8 H Volume Mean Corpuscular 34.4 H Hemoglobin Mean Corpuscular 33.5 Hemoglobin Nina nt Red Cell 17.3 H Distribution Width Platelet Count 156 Mean Platelet 10.4 Volume Immature 0.600 H Granulocytes % Neutrophils % 75.4 Lymphocytes % 12.9 L Monocytes % 10.3 Eosinophils % 0.6 Basophils % 0.2 Nucleated Red 0.0 Blood Cells % Immature 0.030 Granulocytes # Neutrophils # 3.8 Lymphocytes # 0.7 L Monocytes # 0.5 Eosinophils # 0.0 Basophils # 0.0 Nucleated Red 0.0 Blood Cells # Prothrombin Time 24.0 H Prothrombin Time 1.9 Ratio INR 2.14 International Normalized Ratio Activated 53.2 H Partial Thrombop last Time D-Dimer 440.01 D-Dimer Comment Sodium Level 132 L Potassium Level 4.8 Chloride Level 97 Carbon Dioxide 18 L Level Anion Gap 17 H Blood Urea 85 H Nitrogen Creatinine 2.40 H Est Glomerular 27 L Filtrat Rate mL/min Glucose Level 136 Calcium Level 8.6 Total Bilirubin 0.2 Direct Bilirubin 0.00 Indirect 0.2 Bilirubin Aspartate Amino 37 Transf (AST/SGOT ) Alanine 22 Aminotransferase (ALT/SGPT) Alkaline 161 H Phosphatase Troponin I 0.166 *H B-Type 4180 H Natriuretic Peptide Total Protein 6.6 Albumin 3.5 Globulin 3.10 Albumin/Globulin 1.12 Ratio Blood Gas Blood venous Specimen Source Arterial Blood 03/08/2019 8:20:30 Date Drawn PM Arterial Blood VENOUS LINE Gas Puncture Site [place] Test N/A Venous Blood pH 7.320 L Venous Blood 41.9 pCO2 (Temp Corrected) Venous Blood pO2 33.0 H (Temp Corrected) Venous Blood 21.1 L HCO3 Venous Blood 54.2 L Oxygen Saturation Venous Blood -4.7 Base Excess Venous Blood 8.9 Total Hemoglobin Venous Blood 53.8 Oxyhemoglobin Venous Blood 0.4 Methemoglobin Carboxyhemoglobi 0.3 n Blood Gas 37.0 Temperature Blood Gas NASAL CANNULA Modality FiO2 33.0 Blood Gas MG Notified Whom Blood Gas 03/08/2019 8:28:04 Notified Time PM POC Venous 4.3 *H Lactate Bedside Glucose 146 Test 03/08/19 21:40 03/08/19 23:02 03/09/19 05:47 03/09/19 09:20 Lactic Acid 2.1 *H Level Creatine Kinase 32 23 Creatine Kinase 3.0 4.0 Index Creatinine 0.95 0.93 Kinase MB (Mass) Troponin I 0.152 *H 0.195 *H White Blood 4.3 L Count Red Blood Count 2.36 L Hemoglobin 8.0 L Hematocrit 24.3 L Mean Corpuscular 103.0 H Volume Mean Corpuscular 33.9 H Hemoglobin Mean Corpuscular 32.9 Hemoglobin Nina nt Red Cell 17.6 H Distribution Width Platelet Count 125 L Mean Platelet 10.5 H Volume Immature 0.200 Granulocytes % Neutrophils % 73.8 Lymphocytes % 11.1 L Monocytes % 13.9 H Eosinophils % 0.5 Basophils % 0.5 Nucleated Red 0.0 Blood Cells % Immature 0.010 Granulocytes # Neutrophils # 3.1 Lymphocytes # 0.5 L Monocytes # 0.6 Eosinophils # 0.0 Basophils # 0.0 Nucleated Red 0.0 Blood Cells # Sodium Level 134 L Potassium Level 5.2 H Chloride Level 101 Carbon Dioxide 20 L Level Anion Gap 13 Blood Urea 89 H Nitrogen Creatinine 2.21 H Est Glomerular 30 L Filtrat Rate mL/min Glucose Level 95 # Hemoglobin A1c 5.7 Calcium Level 8.5 Magnesium Level 2.8 H Total Bilirubin 0.4 Direct Bilirubin 0.00 Indirect 0.4 Bilirubin Aspartate Amino 47 H Transf (AST/SGOT ) Alanine 23 Aminotransferase (ALT/SGPT) Alkaline 134 H Phosphatase Total Protein 6.1 Albumin 3.5 Globulin 2.60 Albumin/Globulin 1.34 Ratio Triglycerides 31 Level Cholesterol 97 L Level LDL Cholesterol, 66 Calculated HDL Cholesterol 25 L Cholesterol/HDL 3.8 Ratio Thyroid 2.610 Stimulating Hormone (TSH) Urine Color YELLOW Urine Clarity SLIGHTLY CLOUDY A Urine pH 6.0 Urine Specific 1.010 Niles Urine Ketones NEGATIVE Urine Nitrite NEGATIVE Urine Bilirubin NEGATIVE Urine 1+ H Urobilinogen Urine Leukocyte 2+ H Esterase Urine > 182 H Microscopic RBC Urine 86 H Microscopic WBC Urine Bacteria FEW A Urine Mucus FEW A Urine Hemoglobin 3+ H Urine Random 74.35 Creatinine Urine Random 46 Sodium Urine Glucose NEGATIVE Urine Total 103.0 H Protein Test 03/09/19 09:58 White Blood 4.4 L Count Red Blood Count 2.40 L Hemoglobin 8.2 L Hematocrit 24.7 L Mean Corpuscular 102.9 H Volume Mean Corpuscular 34.2 H Hemoglobin Mean Corpuscular 33.2 Hemoglobin Nina nt Red Cell 17.4 H Distribution Width Platelet Count 139 L Mean Platelet 10.7 H Volume Immature 0.700 H Granulocytes % Neutrophils % 77.6 H Lymphocytes % 9.6 L Monocytes % 11.2 H Eosinophils % 0.7 Basophils % 0.2 Nucleated Red 0.0 Blood Cells % Immature 0.030 Granulocytes # Neutrophils # 3.4 Lymphocytes # 0.4 L Monocytes # 0.5 Eosinophils # 0.0 Basophils # 0.0 Nucleated Red 0.0 Blood Cells # Sodium Level 135 Potassium Level 4.9 Chloride Level 101 Carbon Dioxide 24 Level Anion Gap 10 Blood Urea 87 H Nitrogen Creatinine 2.45 H Est Glomerular 26 L Filtrat Rate mL/min Glucose Level 103 Lactic Acid 1.1 Level Calcium Level 8.8 Total Bilirubin 0.5 Direct Bilirubin 0.00 Indirect 0.5 Bilirubin Aspartate Amino 30 Transf (AST/SGOT ) Alanine 27 Aminotransferase (ALT/SGPT) Alkaline 137 H Phosphatase Creatine Kinase 26 Creatine Kinase 3.4 Index Creatinine 0.88 Kinase MB (Mass) Troponin I 0.215 *H Total Protein 6.3 Albumin 3.5 Globulin 2.80 Albumin/Globulin 1.25 Ratio Medications Medication Current Medications Ondansetron HCl (Zofran Inj) 4 mg ER BRIDGE PRN IV NAUSEA/VOMITING Last administered on 03/08/19at 20:40; Admin Dose 4 MG; Start 03/08/19 at 21:00; Stop 03/09/19 at 20:59 Acetaminophen (Tylenol Tab) 650 mg ER BRIDGE PRN PO .MILD PAIN 1-3 OR TEMP; Start 03/08/19 at 21:00; Stop 03/09/19 at 20:59 IV Flush (NS 3 ml) 3 ml PER PROTOCOL IV ; Start 03/08/19 at 22:00 Acetaminophen (Tylenol Tab) 650 mg Q6H PRN PO .PAIN 1-3 OR TEMP; Start 03/08/19 at 22:00 Docusate Sodium (Colace) 100 mg Q12H PRN PO .CONSTIPATION; Start 03/08/19 at 22:00 Bisacodyl (Dulcolax) 5 mg DAILY PRN PO .CONSTIPATION; Start 03/08/19 at 22:00 Heparin Sodium (Porcine) (Heparin (5000 Units/1ml)) 5,000 unit Q8 SC Last administered on 03/09/19at 05:16; Admin Dose 5,000 UNIT; Start 03/08/19 at 22:00 Midodrine (Proamatine) 5 mg Q8 PO Last administered on 03/09/19at 05:10; Admin Dose 5 MG; Start 03/09/19 at 06:00 Tramadol HCl (Ultram) 100 mg Q6H PRN PO MODERATE PAIN LEVEL 4-6; Start 03/09/19 at 01:00 Ceftriaxone Sodium 50 ml @ 100 mls/hr Q24H IVPB Last administered on 03/09/19at 07:22; Admin Dose 100 MLS/HR; Start 03/09/19 at 07:30 Furosemide (Lasix) 40 mg BID DIURETICS IV Last administered on 03/09/19at 11:19; Admin Dose 40 MG; Start 03/09/19 at 09:00 TAYLOR GARAY Mar 09, 2019 13:40
[2019-03-09] MEDS: CEFEPIME 1GM/50 ML (PMX) 50 ML IVPB SCH (14:15)
--- NOTE | 2019-03-09 15:07 | RADRPT ---
Echocardiogram Report Patient Name: BIJAN OROZCO WILLIAMJRPatient ID: [id number] : 1950 (69y )Study Date: 03/09/2019 9:31:33 AM Gender: MAccession #: [id number] Tech: Vishal Piña [facility] Ref.Physician: JOHNNIE KIRKLAND Height(Cm): BSA: Weight(Kg): Quality: AdequateAccount #: Procedures: Echocardiographic Report: Transthoracic echocardiogram with complete 2D, M-Mode, and doppler examination. Indications: Congestive Heart Failure, elevated troponin. Measurements: 2D/M Mode Doppler Measurement Value Normal Range Measurement Value Normal Range LVIDd 2D 7.6 [ 4.2 - 5.8 ] cm AV Peak [place] 1.2 [ 100.0 - 170.0 ] cm/sec LVIDs 2D 6.7 [ 2.5 - 4.0 ] cm AV Peak PG 6.0 [ 2.0 - 9.0 ] mmHg LVPWd 2D 1.1 [ 0.6 - 1.0 ] cm LVOT Peak [place] 0.7 [ 70.0 - 110.0 ] cm/sec IVSd 2D 1.1 [ 0.6 - 1.0 ] cm LVOT Peak PG 2.0 [ 2.0 - 6.0 ] mmHg AoR Diam 2D 3.5 [ 2.6 - 3.4 ] cm MV E Peak [place] 1.3 [ 60.0 - 130.0 ] cm/sec EDV 2D 308.0 [ 62.0 - 150.0 ] ml MV A Peak [place] 0.4 [ 100.0 - 120.0 ] cm/sec ESV 2D 229.0 [ 21.0 - 61.0 ] ml MV E/A 3.3 [ 0.8 - 1.5 ] ratio EF 2D 25.6 [ 52.0 - 72.0 ] percent MV Decel Time 183 [ 104 - 258 ] msec LA Dimen 2D 5.5 [ 3.0 - 4.0 ] cm Lat E` [place] 0.1 [ 10.0 - 15.0 ] cm/sec Lateral E/E` 9.1 [ 1.0 - 2.0 ] ratio MV E/A 3.3 [ 0.8 - 1.5 ] ratio TR Peak [place] 2.7 [ 100.0 - 280.0 ] cm/sec TR Peak PG 28.0 mmHg RVSP 38.0 [ 10.0 - 36.0 ] mmHg Findings: Left Ventricle: Left ventricular wall thickness upper limits of normal. Severe enlargement of left ventricle cavity. Severe global left ventricular systolic dysfunction. Paradoxical septal motion consistent with RV pacemaker. Ejection fraction is visually estimated at 25 %. Tissue Doppler/Mitral Doppler indices are consistent with pseudonormalization with mildly elevated left atrial pressure (Stage II diastolic dysfunction). Right Ventricle: Moderate right ventricular systolic dysfunction. Severe enlargement of right ventricle. Pacemaker right heart. Left Atrium: There is severe enlargement of left atrium. Right Atrium: There is moderate enlargement of right atrium. Mitral Valve: Mild mitral leaflet calcification. Mild mitral annular calcification. Moderate mitral valve regurgitation. The regurgitation jet is eccentrically directed which may underestimate the severity of mitral regurgitation. Aortic Valve: No hemodynamically significant aortic stenosis by doppler. Aortic cusps appear mildly calcified. Trace aortic valve regurgitation. Tricuspid Valve: Normal appearance of the tricuspid valve. Estimated peak PA systolic pressure 42 mmHg. There is moderate tricuspid regurgitation. Pulmonic Valve: Normal pulmonic valve appearance. Pericardium: Normal pericardium with no significant pericardial effusion. Aorta: Normal aortic root. IVC: Dilated IVC without respiratory collapse consistent with elevated right atrial pressure. Conclusions: There is severe enlargement of left atrium. There is moderate enlargement of right atrium. Moderate right ventricular systolic dysfunction. Severe enlargement of right ventricle. Pacemaker right heart. Left ventricular wall thickness upper limits of normal. Severe enlargement of left ventricle cavity. Severe global left ventricular systolic dysfunction. Paradoxical septal motion consistent with RV pacemaker. Ejection fraction is visually estimated at 25 %. Tissue Doppler/Mitral Doppler indices are consistent with pseudonormalization with mildly elevated left atrial pressure (Stage II diastolic dysfunction). Mild mitral leaflet calcification. Mild mitral annular calcification. Moderate mitral valve regurgitation. The regurgitation jet is eccentrically directed which may underestimate the severity of mitral regurgitation. No hemodynamically significant aortic stenosis by doppler. Aortic cusps appear mildly calcified. Trace aortic valve regurgitation. Normal appearance of the tricuspid valve. Estimated peak PA systolic pressure 42 mmHg. There is moderate tricuspid regurgitation. Dilated IVC without respiratory collapse consistent with elevated right atrial pressure. Electronically Signed By: Tejas House 2019-03-09 15:06:32 PDT
--- NOTE | 2019-03-09 17:05 | CONS ---
Assessment/Plan Assessment/Plan Hospital Course (Demo Recall) 1. Syncope etiology unclear 2. Abnormal troponin secondary to below 3. Congestive heart failure : Acute on chronic secondary systolic and probably diastolic heart failure 3. History of severe ischemic cardiomyopathy ejection fraction 25% 5. Coronary artery disease with history of coronary bypass graft 6. History of multiple PCI 7. History of proximal atrial fibrillation currently in sinus/atrial paced rhythm 8. Hypotension 9. Rule out seizures Recommendations: I will resume patient on Pradaxa. We will try to have the pacemaker/defibrillator interrogated to see if there was any events His Coreg and ARB on hold due to his low blood pressure continue to monitor on telemetry. We will start him on statin for now. His dose of cholesterol medication at home is unavailable to me Thank you for his referral. We will continue to follow along with you JESUS PEDRO MD [facility] Consultation Date/Type/Reason Admit Date/Time Date of Consultation: Mar 09, 2019 Type of Consult Cardiology Reason for Consultation + trop . syncope Requesting Provider: JOHNNIE KIRKLAND Date/Time of Note DATE: 03/09/19 TIME: 16:59 Hx of Present Illness Interventional cardiology consultation note Chief complaint: Syncope possible seizure Reason for consult: Syncope, congestive heart failure, abnormal troponin History of present illness: Thank you for this referral. History was obtained from the patient who is a fair historian at best from discussion with his daughter and review of the chart and staff. This is a 68-year-old male with a past medical history of chronic kidney disease, unknown baseline creatinine, history of congestive heart failure, baseline ejection fraction of 25% status post ICD, history of coronary artery disease, history of P-AFib, history of diabetes who presents to [facility] after a syncopal episode. According to the daughter patient was being put into her car when he had a blank stare and was unresponsive. Patient also had urinary incontinence Chest x-ray has showed congestive heart failure. As discussed with the daughter patient appears to be in chronic congestive heart failure with significant orthopnea and lower extremity edema which has been going on for a long time. Patient also elevated creatinine as well as line blood pressure PAST MEDICAL HISTORY: History of CKD, history of CHF, ejection fraction of 25%, history of coronary artery disease, eczema atrial fibrillation status post cardioversion PAST SURGICAL HISTORY: CABG many years ago history of multiple PCI history of DC cardioversion history of ICD placement appears to be [employer] ICD per family's report FAMILY HISTORY: Multiple family members with coronary artery disease SOCIAL HISTORY: Does not drink, smoke, do drugs. Has quit smoking many years ago. Was born in [place] CODE STATUS is DNR. However patient and the family want to continue with ICD shock if needed Allergies: IV contrast Medications : He is not available but apparently patient takes Pradaxa Coreg and losartan dose of which is not clear Review of system: Patient denies all others except for above-mentioned Past Medical History Medications Current Medications IV Flush (NS 3 ml) 3 ml PER PROTOCOL IV ; Start 03/08/19 at 22:00 Acetaminophen (Tylenol Tab) 650 mg Q6H PRN PO .PAIN 1-3 OR TEMP; Start 03/08/19 at 22:00 Docusate Sodium (Colace) 100 mg Q12H PRN PO .CONSTIPATION; Start 03/08/19 at 22:00 Bisacodyl (Dulcolax) 5 mg DAILY PRN PO .CONSTIPATION; Start 03/08/19 at 22:00 Heparin Sodium (Porcine) (Heparin (5000 Units/1ml)) 5,000 unit Q8 SC Last administered on 03/09/19at 14:20; Admin Dose 5,000 UNIT; Start 03/08/19 at 22:00 Midodrine (Proamatine) 5 mg Q8 PO Last administered on 03/09/19at 14:15; Admin Dose 5 MG; Start 03/09/19 at 06:00 Tramadol HCl (Ultram) 100 mg Q6H PRN PO MODERATE PAIN LEVEL 4-6; Start 03/09/19 at 01:00 Furosemide (Lasix) 40 mg BID DIURETICS IV Last administered on 03/09/19at 11:19; Admin Dose 40 MG; Start 03/09/19 at 09:00 Cefepime HCl 50 ml @ 100 mls/hr Q24H IVPB Last administered on 03/09/19at 14:15; Admin Dose 100 MLS/HR; Start 03/09/19 at 15:00 Allergies: Uncoded Allergies: IV CONTRAST (Allergy, Unknown, 03/08/19) Social History Alcohol Use: none Smoking Status: Former smoker Drug Use: none Exam/Review of Systems Vital Signs Vitals Vital Signs Date Temp Pulse Resp B/P (MAP) Pulse Ox O2 O2 Flow FiO2 Time Delivery Rate 03/09/19 98.0 74 20 89/53 (65) 96 Room Air 15:43 03/08/19 3.5 21:40 Intake and Output 03/08/19 03/08/19 03/09/19 1515:00 23:00 07:00 IntakeIntake Total 350 ml OutputOutput Total 650 ml BalanceBalance -300 ml Exam Exam General: Obese gentleman no acute distress HEENT: NC/AT. pupils are equal. round. NECK: +JVD. no stridor. CV: RRR. systolic murmur; no gallop or rubs. PULM: no wheezing + rhonchi. GI: SOFT, NT, ND, no rebound or guarding Extremity: +B/L LE edema. no clubbing. neuro: awake and alert, OX3. Psych: calm and pleasant rectal: deferred EKG was personally showed AV paced Chest x-ray shows: Moderate cardiomegaly with mild pulmonary vascular congestion. Labs Result Diagram: 03/09/19 0958 03/09/19 0958 Results 24hrs Laboratory Tests Test 03/08/19 19:25 03/08/19 19:27 03/08/19 19:31 03/08/19 19:41 White Blood 5.1 Count Red Blood Count 2.50 L Hemoglobin 8.6 L Hematocrit 25.7 L Mean Corpuscular 102.8 H Volume Mean Corpuscular 34.4 H Hemoglobin Mean Corpuscular 33.5 Hemoglobin Nina nt Red Cell 17.3 H Distribution Width Platelet Count 156 Mean Platelet 10.4 Volume Immature 0.600 H Granulocytes % Neutrophils % 75.4 Lymphocytes % 12.9 L Monocytes % 10.3 Eosinophils % 0.6 Basophils % 0.2 Nucleated Red 0.0 Blood Cells % Immature 0.030 Granulocytes # Neutrophils # 3.8 Lymphocytes # 0.7 L Monocytes # 0.5 Eosinophils # 0.0 Basophils # 0.0 Nucleated Red 0.0 Blood Cells # Prothrombin Time 24.0 H Prothrombin Time 1.9 Ratio INR 2.14 International Normalized Ratio Activated 53.2 H Partial Thrombop last Time D-Dimer 440.01 D-Dimer Comment Sodium Level 132 L Potassium Level 4.8 Chloride Level 97 Carbon Dioxide 18 L Level Anion Gap 17 H Blood Urea 85 H Nitrogen Creatinine 2.40 H Est Glomerular 27 L Filtrat Rate mL/min Glucose Level 136 Calcium Level 8.6 Total Bilirubin 0.2 Direct Bilirubin 0.00 Indirect 0.2 Bilirubin Aspartate Amino 37 Transf (AST/SGOT ) Alanine 22 Aminotransferase (ALT/SGPT) Alkaline 161 H Phosphatase Troponin I 0.166 *H B-Type 4180 H Natriuretic Peptide Total Protein 6.6 Albumin 3.5 Globulin 3.10 Albumin/Globulin 1.12 Ratio Blood Gas Blood venous Specimen Source Arterial Blood 03/08/2019 8:20:30 Date Drawn PM Arterial Blood VENOUS LINE Gas Puncture Site [place] Test N/A Venous Blood pH 7.320 L Venous Blood 41.9 pCO2 (Temp Corrected) Venous Blood pO2 33.0 H (Temp Corrected) Venous Blood 21.1 L HCO3 Venous Blood 54.2 L Oxygen Saturation Venous Blood -4.7 Base Excess Venous Blood 8.9 Total Hemoglobin Venous Blood 53.8 Oxyhemoglobin Venous Blood 0.4 Methemoglobin Carboxyhemoglobi 0.3 n Blood Gas 37.0 Temperature Blood Gas NASAL CANNULA Modality FiO2 33.0 Blood Gas MG Notified Whom Blood Gas 03/08/2019 8:28:04 Notified Time PM POC Venous 4.3 *H Lactate Bedside Glucose 146 Test 03/08/19 21:40 03/08/19 23:02 03/09/19 05:47 03/09/19 09:20 Lactic Acid 2.1 *H Level Creatine Kinase 32 23 Creatine Kinase 3.0 4.0 Index Creatinine 0.95 0.93 Kinase MB (Mass) Troponin I 0.152 *H 0.195 *H White Blood 4.3 L Count Red Blood Count 2.36 L Hemoglobin 8.0 L Hematocrit 24.3 L Mean Corpuscular 103.0 H Volume Mean Corpuscular 33.9 H Hemoglobin Mean Corpuscular 32.9 Hemoglobin Nina nt Red Cell 17.6 H Distribution Width Platelet Count 125 L Mean Platelet 10.5 H Volume Immature 0.200 Granulocytes % Neutrophils % 73.8 Lymphocytes % 11.1 L Monocytes % 13.9 H Eosinophils % 0.5 Basophils % 0.5 Nucleated Red 0.0 Blood Cells % Immature 0.010 Granulocytes # Neutrophils # 3.1 Lymphocytes # 0.5 L Monocytes # 0.6 Eosinophils # 0.0 Basophils # 0.0 Nucleated Red 0.0 Blood Cells # Sodium Level 134 L Potassium Level 5.2 H Chloride Level 101 Carbon Dioxide 20 L Level Anion Gap 13 Blood Urea 89 H Nitrogen Creatinine 2.21 H Est Glomerular 30 L Filtrat Rate mL/min Glucose Level 95 # Hemoglobin A1c 5.7 Calcium Level 8.5 Magnesium Level 2.8 H Total Bilirubin 0.4 Direct Bilirubin 0.00 Indirect 0.4 Bilirubin Aspartate Amino 47 H Transf (AST/SGOT ) Alanine 23 Aminotransferase (ALT/SGPT) Alkaline 134 H Phosphatase Total Protein 6.1 Albumin 3.5 Globulin 2.60 Albumin/Globulin 1.34 Ratio Triglycerides 31 Level Cholesterol 97 L Level LDL Cholesterol, 66 Calculated HDL Cholesterol 25 L Cholesterol/HDL 3.8 Ratio Thyroid 2.610 Stimulating Hormone (TSH) Urine Color YELLOW Urine Clarity SLIGHTLY CLOUDY A Urine pH 6.0 Urine Specific 1.010 [place] Urine Ketones NEGATIVE Urine Nitrite NEGATIVE Urine Bilirubin NEGATIVE Urine 1+ H Urobilinogen Urine Leukocyte 2+ H Esterase Urine > 182 H Microscopic RBC Urine 86 H Microscopic WBC Urine Bacteria FEW A Urine Mucus FEW A Urine Hemoglobin 3+ H Urine Random 74.35 Creatinine Urine Random 46 Sodium Urine Glucose NEGATIVE Urine Total 103.0 H Protein Test 03/09/19 09:58 03/09/19 14:46 White Blood 4.4 L Count Red Blood Count 2.40 L Hemoglobin 8.2 L Hematocrit 24.7 L Mean Corpuscular 102.9 H Volume Mean Corpuscular 34.2 H Hemoglobin Mean Corpuscular 33.2 Hemoglobin Nina nt Red Cell 17.4 H Distribution Width Platelet Count 139 L Mean Platelet 10.7 H Volume Immature 0.700 H Granulocytes % Neutrophils % 77.6 H Lymphocytes % 9.6 L Monocytes % 11.2 H Eosinophils % 0.7 Basophils % 0.2 Nucleated Red 0.0 Blood Cells % Immature 0.030 Granulocytes # Neutrophils # 3.4 Lymphocytes # 0.4 L Monocytes # 0.5 Eosinophils # 0.0 Basophils # 0.0 Nucleated Red 0.0 Blood Cells # Sodium Level 135 Potassium Level 4.9 Chloride Level 101 Carbon Dioxide 24 Level Anion Gap 10 Blood Urea 87 H Nitrogen Creatinine 2.45 H Est Glomerular 26 L Filtrat Rate mL/min Glucose Level 103 Lactic Acid 1.1 Level Calcium Level 8.8 Total Bilirubin 0.5 Direct Bilirubin 0.00 Indirect 0.5 Bilirubin Aspartate Amino 30 Transf (AST/SGOT ) Alanine 27 Aminotransferase (ALT/SGPT) Alkaline 137 H Phosphatase Creatine Kinase 26 25 Creatine Kinase 3.4 3.2 Index Creatinine 0.88 0.81 Kinase MB (Mass) Troponin I 0.215 *H 0.222 *H Total Protein 6.3 Albumin 3.5 Globulin 2.80 Albumin/Globulin 1.25 Ratio Medications Medications Current Medications IV Flush (NS 3 ml) 3 ml PER PROTOCOL IV ; Start 03/08/19 at 22:00 Acetaminophen (Tylenol Tab) 650 mg Q6H PRN PO .PAIN 1-3 OR TEMP; Start 03/08/19 at 22:00 Docusate Sodium (Colace) 100 mg Q12H PRN PO .CONSTIPATION; Start 03/08/19 at 22:00 Bisacodyl (Dulcolax) 5 mg DAILY PRN PO .CONSTIPATION; Start 03/08/19 at 22:00 Heparin Sodium (Porcine) (Heparin (5000 Units/1ml)) 5,000 unit Q8 SC Last administered on 03/09/19 14:20; Admin Dose 5,000 UNIT; Start 03/08/19 at 22:00 Midodrine (Proamatine) 5 mg Q8 PO Last administered on 03/09/19at 14:15; Admin Dose 5 MG; Start 03/09/19 at 06:00 Tramadol HCl (Ultram) 100 mg Q6H PRN PO MODERATE PAIN LEVEL 4-6; Start 03/09/19 at 01:00 Furosemide (Lasix) 40 mg BID DIURETICS IV Last administered on 03/09/19 11:19; Admin Dose 40 MG; Start 03/09/19 at 09:00 Cefepime HCl 50 ml @ 100 mls/hr Q24H IVPB Last administered on 03/09/19 14:15; Admin Dose 100 MLS/HR; Start 03/09/19 at 15:00 JESUS PEDRO MD Mar 09, 2019 17:05
[2019-03-09] MEDS: DABIGATRAN 75 MG CAP PO SCH (21:36)
[2019-03-09] MEDS: ATORVASTATIN 40 MG TAB PO SCH (21:36)
[2019-03-10] VITALS (10 sets, daily range): BP systolic 92–110; BP diastolic 51–88; PULSE 69–80; RESP 18–20
[2019-03-10] MEDS ORDERED: HYDROCODONE/APAP (5/325) TAB PO ONE (02:35)
[2019-03-10] MEDS: MIDODRINE 5 MG TAB PO SCH ×3 (06:25→21:16)
[2019-03-10] MEDS: FUROSEMIDE 40 MG INJ IV SCH ×2 (06:26→17:42)
[2019-03-10] MEDS: DABIGATRAN 75 MG CAP PO SCH ×2 (08:17→21:16)
--- NOTE | 2019-03-10 09:14 | PN ---
DATE: 03/10/2019 SUBJECTIVE: Patient stable, no events overnight. No fevers, chills, nausea, vomiting. OBJECTIVE: VITAL SIGNS: Blood pressure is 101/57, pulse 70, respirations 20, temperature 98.5. HEENT: Head is normocephalic. NECK: Supple. HEART: Regular rate. LUNGS: Show diminished breath sounds at base. ABDOMEN: Soft, nontender to palpation without rebound or guarding. EXTREMITIES: Negative for clubbing, cyanosis. Positive edema. DERMATOLOGIC: No rashes. MUSCULOSKELETAL: No joint effusion. NEUROLOGIC: No change in exam. MEDICATIONS: Reviewed. LABORATORY DATA: From 03/10/2019 was reviewed. The patient's renal ultrasound was reviewed, showed no hydronephrosis, normal echogenicity of the kidneys. A 1.7 cm cyst is noted. ASSESSMENT AND PLAN: 1. Nonoliguric acute kidney injury on top of chronic kidney disease with previous baseline creatinin e around 1.8 to 2.0 mg/dL per patient's family. Etiology of current acute kidney injury is multifact orial secondary to hemodynamics, cardiorenal syndrome. The patient's urinalysis was reviewed. Renal ultrasound was reviewed. No obstruction noted. The patient's renal function has been stable in the last 24 hours. At this point, continue current treatment plan. Continue diuretic therapy, monitor renal function, electrolytes closely. 2. Hyponatremia secondary to acute kidney injury, improved. Continue to monitor. Continue to limit free water intake. 3. Anemia. Continue to monitor hemoglobin and hematocrit levels. 4. Mineral bone disorder, monitor calcium and phosphorus levels. 5. Acute decompensated heart failure. The patient remains volume overloaded. Continue current diur etic regimen and monitor renal function, electrolytes closely. 6. Hypotension. Blood pressure has improved. Continue to monitor closely. Etiology may be multifa ctorial secondary to sepsis, heart failure. Continue current medical management. 7. Lactic acidosis, resolved. Etiology is likely secondary to hypertension, possible sepsis. Portia nue current medical management. 8. NSTEMI. Continue current treatment plan. Dictated By: MARY ARMANDO DO NR/NTS Conf#: [id number] DID#: [id number] CC: JOHNNIE KIRKLAND MD;*End*
--- NOTE | 2019-03-10 10:04 | CONS ---
Consult Date/Type/Reason Admit Date/Time Mar 08, 2019 at 20:39 Initial Consult Date 03/09/19 Type of Consultation: cv Requesting Provider: JOHNNIE KIRKLAND Date/Time of Note DATE: 03/10/19 TIME: 10:01 Subjective Cardiology follow-up progress note Subjective: Discussed with the staff and telemetry was reviewed. Patient remains mostly in atrial paced rhythm No chest pain or pressure no syncope no presyncope breathing much better today Objective: General: Obese gentleman no acute distress HEENT: NC/AT. pupils are equal. round. NECK: +JVD. no stridor. CV: RRR. systolic murmur; no gallop or rubs. PULM: no wheezing + rhonchi. GI: SOFT, NT, ND, no rebound or guarding Extremity: +B/L LE edema. no clubbing. neuro: awake and alert, OX3. Psych: calm and pleasant rectal: deferred EKG was personally showed AV paced Chest x-ray shows: Moderate cardiomegaly with mild pulmonary vascular congestion. Objective Vitals Vital Signs Date Temp Pulse Resp B/P (MAP) Pulse Ox O2 O2 Flow FiO2 Time Delivery Rate 03/10/19 70 08:00 03/10/19 98.5 20 101/57 97 Room Air 07:25 (72) 03/08/19 3.5 21:40 Intake and Output 03/09/19 03/09/19 03/10/19 1515:00 23:00 07:00 IntakeIntake Total 100 ml 720 ml 500 ml OutputOutput Total 800 ml 600 ml 1300 ml BalanceBalance -700 ml 120 ml -800 ml Results/Medications Result Diagram: 03/10/19 0559 03/10/19 0559 Results 24 hrs Laboratory Tests Test 03/09/19 14:46 03/10/19 05:56 03/10/19 05:59 Creatine Kinase 25 Creatine Kinase Index 3.2 Creatinine Kinase MB (Mass) 0.81 Troponin I 0.222 *H Phosphorus Level 5.0 H Magnesium Level 3.0 H White Blood Count 4.9 Red Blood Count 2.63 L Hemoglobin 9.0 L Hematocrit 27.5 L Mean Corpuscular Volume 104.6 H Mean Corpuscular Hemoglobin 34.2 H Mean Corpuscular Hemoglobin Concent 32.7 Red Cell Distribution Width 17.4 H Platelet Count 156 Mean Platelet Volume 10.8 H Immature Granulocytes % 0.600 H Neutrophils % 76.7 Lymphocytes % 10.8 L Monocytes % 10.3 Eosinophils % 1.2 Basophils % 0.4 Nucleated Red Blood Cells % 0.0 Immature Granulocytes # 0.030 Neutrophils # 3.8 Lymphocytes # 0.5 L Monocytes # 0.5 Eosinophils # 0.1 Basophils # 0.0 Nucleated Red Blood Cells # 0.0 Sodium Level 138 Potassium Level 4.9 Chloride Level 103 Carbon Dioxide Level 24 Anion Gap 11 Blood Urea Nitrogen 87 H Creatinine 2.37 H Est Glomerular Filtrat Rate mL/min 27 L Glucose Level 95 Calcium Level 9.2 Total Bilirubin 0.6 Direct Bilirubin 0.00 Indirect Bilirubin 0.6 Aspartate Amino Transf (AST/SGOT) 35 Alanine Aminotransferase (ALT/SGPT) 24 Alkaline Phosphatase 159 H Total Protein 7.0 Albumin 3.9 Globulin 3.10 Albumin/Globulin Ratio 1.25 Medications Current Medications IV Flush (NS 3 ml) 3 ml PER PROTOCOL IV ; Start 03/08/19 at 22:00 Acetaminophen (Tylenol Tab) 650 mg Q6H PRN PO .PAIN 1-3 OR TEMP; Start 03/08/19 at 22:00 Docusate Sodium (Colace) 100 mg Q12H PRN PO .CONSTIPATION; Start 03/08/19 at 22:00 Bisacodyl (Dulcolax) 5 mg DAILY PRN PO .CONSTIPATION; Start 03/08/19 at 22:00 Midodrine (Proamatine) 5 mg Q8 PO Last administered on 03/10/19at 06:25; Admin Dose 5 MG; Start 03/09/19 at 06:00 Tramadol HCl (Ultram) 100 mg Q6H PRN PO MODERATE PAIN LEVEL 4-6; Start 03/09/19 at 01:00 Furosemide (Lasix) 40 mg BID DIURETICS IV Last administered on 03/10/19at 06:26; Admin Dose 40 MG; Start 03/09/19 at 09:00 Cefepime HCl 50 ml @ 100 mls/hr Q24H IVPB Last administered on 03/09/19at 14:15; Admin Dose 100 MLS/HR; Start 03/09/19 at 15:00 Dabigatran (PRADaxa) 75 mg BID PO Last administered on 03/10/19at 08:17; Admin Dose 75 MG; Start 03/09/19 at 21:00 Atorvastatin Calcium (Lipitor) 40 mg HS PO Last administered on 03/09/19at 21:36; Admin Dose 40 MG; Start 03/09/19 at 21:00 Assessment/Plan Hospital Course (Demo Recall) 1. Syncope etiology unclear: ICD was interrogated on 03/10/2019 I personally reviewed which shows no evidence of DVT or any cardiac event that would correspond to his syncopal episode 2. Abnormal troponin secondary to below 3. Congestive heart failure : Acute on chronic secondary systolic and probably diastolic heart failure 3. History of severe ischemic cardiomyopathy ejection fraction 25% 5. Coronary artery disease with history of coronary bypass graft 6. History of multiple PCI 7. History of proximal atrial fibrillation currently in sinus/atrial paced rhythm 8. Hypotension 9. Rule out seizures Recommendations: Continue with Pradaxa. defibrillator was interrogated on 03/10/2019 which showed normal functioning ICD with no recent events His Coreg and ARB on hold due to his low blood pressure continue to monitor on telemetry. Continue with a statin and adjust as needed Awaiting transfer to [place] insurance reason Thank you for his referral. We will continue to follow along with you JESUS PEDRO MD [facility] JESUS PEDRO MD Mar 10, 2019 10:04
[2019-03-10] MEDS: CEFEPIME 1GM/50 ML (PMX) 50 ML IVPB SCH (14:06)
[2019-03-10] MEDS: ATORVASTATIN 40 MG TAB PO SCH (21:16)
[2019-03-11] VITALS (9 sets, daily range): BP systolic 98–113; BP diastolic 52–59; PULSE 70–72; RESP 18–20
[2019-03-11] MEDS: MIDODRINE 5 MG TAB PO SCH ×3 (06:26→21:25)
[2019-03-11] MEDS: FUROSEMIDE 40 MG INJ IV SCH ×2 (06:26→17:49)
--- NOTE | 2019-03-11 06:55 | DS ---
DATE OF ADMISSION: 03/08/2019 TENTATIVE DATE OF DISCHARGE: 03/10/2019 PRESENTING COMPLAINT: A 68-year-old male brought in by ambulance from his own home after 2 syncopal episodes. He was reportedly staring into space and only responded for a few seconds. He was found to be with an oxygen saturation rate 90% with hypotension and was started on noninvasive positive pressure ventilation, and brought to the emergency room. Apparently, according to the family, the patient always has low blood pressure. He is on midodrine therapy and he is dying from end-stage congestive heart failure. He is status post AICD placement. He was recently on antibiotics for cellulitis of his right thigh. This patient was admitted and commenced on treatment for severe systolic CHF and improved, and was weaned off BiPAP therapy. As of today, he is feeling much better. Pulmonary has no further shortness of breath. He is no longer on BiPAP. He is requiring oxygen via nasal cannula and will still require further diuresis. PHYSICAL EXAMINATION: VITAL SIGNS: Temperature 98.7, pulse 69, respirations 20, blood pressure 101/58, saturations 99% on room air. GENERAL: Morbidly obese male, currently alert, oriented, and does not seem to be in any distress. HEENT: Head is normocephalic without evidence of trauma. Pupils equal and reactive. Mucous membranes are moist. Posterior pharynx clear of erythema and exudate. NECK: Supple. CHEST: With diminished breath sounds bilaterally, still with bibasilar crackles. CARDIOVASCULAR: Irregularly irregular with a systolic murmur. No pain. No chest wall palpation. ABDOMEN: Protuberant but soft, nontender with positive bowel sounds. SKIN: Still with significant bilateral lower extremity edema with chronic skin changes from chronic edema. The patient has a condom catheter to bedside drainage with good output. IMAGING STUDIES: So far, he had a chest x-ray on arrival that showed moderate cardiomegaly with mild pulmonary vascular congestion. He had a renal ultrasound that showed no hydronephrosis. He had lower extremity venous studies that showed no DVT. He had carotid Doppler studies that showed no hemodynamically significant disease; and last but not the least, he had an abdominal ultrasound that showed trace ascites in right upper quadrant. He is being seen by nephrology as well as cardiology. His final diagnoses and treatment so far is as below: 1. Acute hypoxic respiratory failure, status post short course of NIPPV 2. Syncopal episode, likely secondary to #2. 3. Congestive heart failure exacerbation, acute on chronic, both systolic and diastolic, improving. 4. Chronic severe cardiomyopathy with -enlargement of left atrium, moderate enlargement of right atrium, moderate right ventricular systolic dysfunction, enlargement of right ventricle, -ejection fraction visually estimated by echo at 25% with stage II diastolic dysfunction -status post pacemaker/AICD. 5. The patient's AICD has been interrogated without evidence of arrhythmia on interrogation. 6. Moderate mitral valve regurgitation. 7. Elevated troponin with NSTEMI, likely secondary to congestive heart failure. 8. Coronary artery disease with history of diabetes mellitus type 2 and coronary artery bypass. 9. Lactic acid secondary to hypoperfusion that has trended down. 10. Acute kidney injury on chronic kidney disease with hyperkalemia, improved. 11. History of atrial fibrillation, status post ablation? in the past, currently rate controlled. 12. Megaloblastic anemia, improved. 13. Urinary tract infection, on antibiotics. 14. Low HDL, on statin. 15. Dilutional hyponatremia, improving. 16. Previous tobacco use, quit in 1992. PLAN: At this time, the plan is to continue in-house diuresis to optimize the patient. Cardiology continues to follow the patient. Continue antibiotics for urinary tract infection. The patient is also continued on midodrine for which he has been on chronically for hypotension. Further interventions will depend on his clinical course. At this time, he is stable for transfer to telemetry floor at [facility]. Further intervention at [facility] will be per admitting physician. Time spent so far on transfer coordination has been more than 45 minutes. Dictated By: TAYLOR GARAY MD BA/NTS Conf#: [id number] DID#: [id number] CC: JOHNNIE KIRKLAND MD;*EndCC* MTDD
[2019-03-11] MEDS: DABIGATRAN 75 MG CAP PO SCH ×2 (08:05→21:25)
--- NOTE | 2019-03-11 08:08 | CONS ---
Consult Date/Type/Reason Admit Date/Time Mar 08, 2019 at 20:39 Initial Consult Date 03/09/19 Type of Consultation: cv Requesting Provider: JOHNNIE KIRKLAND Date/Time of Note DATE: 03/11/19 TIME: 08:07 Subjective Cardiology follow-up progress note Subjective: Discussed with the staff and telemetry was reviewed. Patient remains mostly in atrial paced rhythm No chest pain or pressure no syncope no presyncope breathing much better today Cannot sleep well at nighttime because of lower back pain Objective: General: Obese gentleman no acute distress HEENT: NC/AT. pupils are equal. round. NECK: +JVD. no stridor. CV: RRR. systolic murmur; no gallop or rubs. PULM: no wheezing + rhonchi. GI: SOFT, NT, ND, no rebound or guarding Extremity: +B/L LE edema. no clubbing. neuro: awake and alert, OX3. Psych: calm and pleasant rectal: deferred EKG was personally showed AV paced Chest x-ray shows: Moderate cardiomegaly with mild pulmonary vascular co ngestion. Objective Vitals Vital Signs Date Temp Pulse Resp B/P (MAP) Pulse Ox O2 O2 Flow FiO2 Time Delivery Rate 03/11/19 98.4 72 20 105/57 99 Room Air 07:27 (73) 03/08/19 3.5 21:40 Intake and Output 03/10/19 03/10/19 03/11/19 1515:00 23:00 07:00 IntakeIntake Total 50 ml 800 ml 400 ml OutputOutput Total 4300 ml 1600 ml BalanceBalance 50 ml -3500 ml -1200 ml Results/Medications Result Diagram: 03/11/1961803/11/1919 Results 24 hrs Laboratory Tests Test 03/11/19 06:19 White Blood Count 5.4 Red Blood Count 2.60 L Hemoglobin 9.0 L Hematocrit 27.0 L Mean Corpuscular Volume 103.8 H Mean Corpuscular Hemoglobin 34.6 H Mean Corpuscular Hemoglobin Concent 33.3 Red Cell Distribution Width 17.5 H Platelet Count 161 Mean Platelet Volume 10.4 Immature Granulocytes % 0.400 Neutrophils % 75.8 Lymphocytes % 10.4 L Monocytes % 11.5 H Eosinophils % 1.5 Basophils % 0.4 Nucleated Red Blood Cells % 0.0 Immature Granulocytes # 0.020 Neutrophils # 4.1 Lymphocytes # 0.6 L Monocytes # 0.6 Eosinophils # 0.1 Basophils # 0.0 Nucleated Red Blood Cells # 0.0 Sodium Level 137 Potassium Level 4.3 Chloride Level 101 Carbon Dioxide Level 28 Anion Gap 8 Blood Urea Nitrogen 52 #H Creatinine 1.91 H Est Glomerular Filtrat Rate mL/min 35 L Glucose Level 95 Calcium Level 9.4 Total Bilirubin 0.8 Direct Bilirubin 0.00 Indirect Bilirubin 0.8 Aspartate Amino Transf (AST/SGOT) 31 Alanine Aminotransferase (ALT/SGPT) 28 Alkaline Phosphatase 157 H Total Protein 7.2 Albumin 3.9 Globulin 3.30 H Albumin/Globulin Ratio 1.18 Medications Current Medications IV Flush (NS 3 ml) 3 ml PER PROTOCOL IV ; Start 03/08/19 at 22:00 Acetaminophen (Tylenol Tab) 650 mg Q6H PRN PO .PAIN 1-3 OR TEMP; Start 03/08/19 at 22:00 Docusate Sodium (Colace) 100 mg Q12H PRN PO .CONSTIPATION; Start 03/08/19 at 22:00 Bisacodyl (Dulcolax) 5 mg DAILY PRN PO .CONSTIPATION; Start 03/08/19 at 22:00 Midodrine (Proamatine) 5 mg Q8 PO Last administered on 03/11/19at 06:26; Admin Dose 5 MG; Start 03/09/19 at 06:00 Tramadol HCl (Ultram) 100 mg Q6H PRN PO MODERATE PAIN LEVEL 4-6; Start 03/09/19 at 01:00 Furosemide (Lasix) 40 mg BID DIURETICS IV Last administered on 03/11/19at 06:26; Admin Dose 40 MG; Start 03/09/19 at 09:00 Cefepime HCl 50 ml @ 100 mls/hr Q24H IVPB Last administered on 03/10/19at 14:06; Admin Dose 100 MLS/HR; Start 03/09/19 at 15:00 Dabigatran (PRADaxa) 75 mg BID PO Last administered on 03/11/19at 08:05; Admin Dose 75 MG; Start 03/09/19 at 21:00 Atorvastatin Calcium (Lipitor) 40 mg HS PO Last administered on 03/10/19at 21:16; Admin Dose 40 MG; Start 03/09/19 at 21:00 Assessment/Plan Hospital Course (Demo Recall) 1. Syncope etiology unclear: ICD was interrogated on 03/10/2019 I personally reviewed which shows no evidence of DVT or any cardiac event that would correspond to his syncopal episode 2. Abnormal troponin secondary to below 3. Congestive heart failure : Acute on chronic secondary systolic and probably diastolic heart failure 3. History of severe ischemic cardiomyopathy ejection fraction 25% 5. Coronary artery disease with history of coronary bypass graft 6. History of multiple PCI 7. History of proximal atrial fibrillation currently in sinus/atrial paced rhythm 8. Hypotension 9. Rule out seizures Recommendations: Continue with Pradaxa. defibrillator was interrogated on 03/10/2019 which showed normal functioning ICD with no recent events We will start the patient on low-dose beta-quinn Continue with a statin and adjust as needed Awaiting transfer to [facility] Thank you for his referral. We will continue to follow along with you JESUS PEDRO MD [facility] JESUS PEDRO MD Mar 11, 2019 08:08
--- NOTE | 2019-03-11 09:23 | PN ---
DATE: 03/11/2019 SUBJECTIVE: The patient is stable. No events overnight. The patient has had good urinary output. No fevers, chills, nausea, vomiting. OBJECTIVE: VITAL SIGNS: Blood pressure is 105/57, pulse 70, respirations 20, temperature 98.4. HEENT: Head is normocephalic. NECK: Supple. HEART: Regular rate. LUNGS: Show diminished breath sounds at the base. ABDOMEN: Soft, nontender to palpation. No rebound or guarding. EXTREMITIES: Negative for clubbing, cyanosis. The patient does have lower extremity edema. DERMATOLOGIC: No rashes. MUSCULOSKELETAL: No joint effusion. NEUROLOGIC: No change in exam. MEDICATIONS: The patient's medications have been reviewed. LABORATORY DATA: From 03/11/2019 was reviewed. Patient has a BUN of 52, creatinine 1.91. ASSESSMENT AND PLAN: 1. Nonoliguric acute kidney injury on top of chronic kidney disease with previous baseline creatinin e of 1.8 to 2.0 mg/dL. Etiology of acute kidney injury is secondary to hemodynamics, cardiorenal syn drome. The patient's renal function has been improving with diuretic therapy. The patient has had g ood urinary output over 5 liters in the last 24 hours. At this point, continue current diuretic chantel men. Continue to monitor renal function. Continue to monitor electrolytes closely. 2. Hyponatremia secondary to acute kidney injury, improved. 3. Anemia. Monitor hemoglobin and hematocrit levels. 4. Mineral bone disorder, monitor calcium and phosphorus levels. 5. Acute decompensated heart failure. The patient remains volume overloaded, improving clinically. Continue current medical management. Continue current diuretic therapy. 6. Hypertension, improved. Continue midodrine. 7. Lactic acidosis, resolved. 8. Non-STEMI. Continue medical management. Dictated By: MARY ARMANDO DO NR/NTS Conf#: [id number] DID#: [id number] CC: TAYLOR GARAY MD; JOHNNIE KIRKLAND MD; JESUS PEDRO MD;*EndCC*
[2019-03-11] MEDS: HYDROCODONE/APAP (5/325) TAB PO PRN ×2 (09:48→22:07)
--- NOTE | 2019-03-11 11:38 | PN ---
Date/Time of Note Date/Time of Note DATE: 03/11/19 TIME: 11:34 Assessment/Plan VTE Prophylaxis Risk score (from Nsg)>0 risk: 7 Pharmacological prophylaxis: heparin Lines/Catheters IV Catheter Type (from Nrsg): Saline Lock Urinary Cath still in place: Yes Reason Cath still needed: other (indicate) (condom cath) Assessment/Plan Hospital Course Subjective : no new complaints o: General: A&O x3, answering questions appropriately, obese HEENT: NC/ AT. PERRL. EOM intact Neck: JVD CVS: irregular, . no pain on chest wall palpation Lungs: CTA b/l. no wheezing or rhonchi Abd: soft, nontender, +BS Ext: moving all extremities skin: erickson LE edema with chronic skin changes : nicole to bedside drainage with good output assessment and plan: 68 yo M with reported hx of endstage HF who was BIBA after a syncopal episode (altered, staring into space) with resp distress managed as follows : Acute hypoxic resp failure that required short course on NIPPV: improved Syncopal episode 2/2 #1 CHF exacerbation, acute on chronic, systolic and diastolic Chronic severe CM with -severe enlargement of left atrium and moderate enlargement of right atrium, moderate right ventricular systolic dysfunction / Severe enlargement of right ventricle. -Ejection fraction is visually estimated at 25 % and Stage II diastolic dysfunction -S/p Pacemaker / AICD Moderate mitral valve regurgitation. NSTEMI vs troponin leak CAD with hx of MIx2, CABG Lactic acidosis likely 2/2 hypoperfusion MAYDA on CKD with hyperkalemia hx of afib s/p "shock treatment:" Megaloblastic anemia ' UTI low HDL Hyponatremia , likely dilutional Quit smoking 1992 PLAN: Continue tele, diuresis and empiric abx Transition to oral diuresis tomorrow if ok with cardio and plan to discharge if no further workup planned serial labs PT eval supportive care Result Diagram: 03/11/19 0619 03/11/19 0619 Results 24hrs Laboratory Tests Test 03/11/19 06:19 White Blood Count 5.4 Red Blood Count 2.60 L Hemoglobin 9.0 L Hematocrit 27.0 L Mean Corpuscular Volume 103.8 H Mean Corpuscular Hemoglobin 34.6 H Mean Corpuscular Hemoglobin Concent 33.3 Red Cell Distribution Width 17.5 H Platelet Count 161 Mean Platelet Volume 10.4 Immature Granulocytes % 0.400 Neutrophils % 75.8 Lymphocytes % 10.4 L Monocytes % 11.5 H Eosinophils % 1.5 Basophils % 0.4 Nucleated Red Blood Cells % 0.0 Immature Granulocytes # 0.020 Neutrophils # 4.1 Lymphocytes # 0.6 L Monocytes # 0.6 Eosinophils # 0.1 Basophils # 0.0 Nucleated Red Blood Cells # 0.0 Sodium Level 137 Potassium Level 4.3 Chloride Level 101 Carbon Dioxide Level 28 Anion Gap 8 Blood Urea Nitrogen 52 #H Creatinine 1.91 H Est Glomerular Filtrat Rate mL/min 35 L Glucose Level 95 Calcium Level 9.4 Phosphorus Level 4.2 Magnesium Level 2.7 H Total Bilirubin 0.8 Direct Bilirubin 0.00 Indirect Bilirubin 0.8 Aspartate Amino Transf (AST/SGOT) 31 Alanine Aminotransferase (ALT/SGPT) 28 Alkaline Phosphatase 157 H Total Protein 7.2 Albumin 3.9 Globulin 3.30 H Albumin/Globulin Ratio 1.18 Exam/Review of Systems Exam Vitals Vital Signs Date Temp Pulse Resp B/P (MAP) Pulse Ox O2 O2 Flow FiO2 Time Delivery Rate 03/11/19 99.0 70 20 100/59 97 Room Air 11:26 (73) 03/08/19 3.5 21:40 Intake and Output 03/10/19 03/10/19 03/11/19 1515:00 23:00 07:00 IntakeIntake Total 50 ml 800 ml 400 ml OutputOutput Total 4300 ml 1600 ml BalanceBalance 50 ml -3500 ml -1200 ml Results Results 24hrs Laboratory Tests Test 03/11/19 06:19 White Blood Count 5.4 Red Blood Count 2.60 L Hemoglobin 9.0 L Hematocrit 27.0 L Mean Corpuscular Volume 103.8 H Mean Corpuscular Hemoglobin 34.6 H Mean Corpuscular Hemoglobin Concent 33.3 Red Cell Distribution Width 17.5 H Platelet Count 161 Mean Platelet Volume 10.4 Immature Granulocytes % 0.400 Neutrophils % 75.8 Lymphocytes % 10.4 L Monocytes % 11.5 H Eosinophils % 1.5 Basophils % 0.4 Nucleated Red Blood Cells % 0.0 Immature Granulocytes # 0.020 Neutrophils # 4.1 Lymphocytes # 0.6 L Monocytes # 0.6 Eosinophils # 0.1 Basophils # 0.0 Nucleated Red Blood Cells # 0.0 Sodium Level 137 Potassium Level 4.3 Chloride Level 101 Carbon Dioxide Level 28 Anion Gap 8 Blood Urea Nitrogen 52 #H Creatinine 1.91 H Est Glomerular Filtrat Rate mL/min 35 L Glucose Level 95 Calcium Level 9.4 Phosphorus Level 4.2 Magnesium Level 2.7 H Total Bilirubin 0.8 Direct Bilirubin 0.00 Indirect Bilirubin 0.8 Aspartate Amino Transf (AST/SGOT) 31 Alanine Aminotransferase (ALT/SGPT) 28 Alkaline Phosphatase 157 H Total Protein 7.2 Albumin 3.9 Globulin 3.30 H Albumin/Globulin Ratio 1.18 Medications Medication Current Medications IV Flush (NS 3 ml) 3 ml PER PROTOCOL IV ; Start 03/08/19 at 22:00 Acetaminophen (Tylenol Tab) 650 mg Q6H PRN PO .PAIN 1-3 OR TEMP; Start 03/08/19 at 22:00 Docusate Sodium (Colace) 100 mg Q12H PRN PO .CONSTIPATION; Start 03/08/19 at 22:00 Bisacodyl (Dulcolax) 5 mg DAILY PRN PO .CONSTIPATION; Start 03/08/19 at 22:00 Midodrine (Proamatine) 5 mg Q8 PO Last administered on 03/11/19 06:26; Admin Dose 5 MG; Start 03/09/19 at 06:00 Furosemide (Lasix) 40 mg BID DIURETICS IV Last administered on 03/11/19 06:26; Admin Dose 40 MG; Start 03/09/19 at 09:00 Cefepime HCl 50 ml @ 100 mls/hr Q24H IVPB Last administered on 03/10/19 14:06; Admin Dose 100 MLS/HR; Start 03/09/19 at 15:00 Dabigatran (PRADaxa) 75 mg BID PO Last administered on 03/11/19 08:05; Admin Dose 75 MG; Start 03/09/19 at 21:00 Atorvastatin Calcium (Lipitor) 40 mg HS PO Last administered on 03/10/19 21:16; Admin Dose 40 MG; Start 03/09/19 at 21:00 Metoprolol Succinate (Toprol Xl) 12.5 mg QHS PO ; Start 03/11/19 at 21:00 Acetaminophen/ Hydrocodone Bitart ([place] (5/325)) 1 tab Q6H PRN PO MODERATE PAIN LEVEL 4-6 Last administered on 4/10/19at 09:48; Admin Dose 1 TAB; Start 03/11/19 at 10:00 TAYLOR GARAY Mar 11, 2019 11:38
[2019-03-11] MEDS: METOPROLOL (XL) 25 MG TAB PO SCH (21:00)
[2019-03-11] MEDS: ATORVASTATIN 40 MG TAB PO SCH (21:24)
[2019-03-11] MEDS: HEPARIN 5,000 UNIT/1 ML VIAL SC SCH (21:26)
[2019-03-12] VITALS (10 sets, daily range): BP systolic 92–110; BP diastolic 53–58; PULSE 69–71; RESP 18–19
[2019-03-12] MEDS: FUROSEMIDE 40 MG INJ IV SCH (06:08)
[2019-03-12] MEDS: MIDODRINE 5 MG TAB PO SCH ×3 (06:08→22:38)
--- NOTE | 2019-03-12 08:15 | CONS ---
Consult Date/Type/Reason Admit Date/Time Mar 08, 2019 at 20:39 Initial Consult Date 03/09/19 Type of Consultation: cv Requesting Provider: JOHNNIE KIRKLAND Date/Time of Note DATE: 03/12/19 TIME: 08:13 Subjective Cardiology follow-up progress note Subjective: Discussed with the staff and telemetry was reviewed. Patient remains mostly in atrial paced rhythm No chest pain or pressure no syncope no presyncope breathing much better today Objective: General: Obese gentleman no acute distress HEENT: NC/AT. pupils are equal. round. NECK: . no stridor. CV: RRR. systolic murmur; no gallop or rubs. PULM: no wheezing + rhonchi. GI: SOFT, NT, ND, no rebound or guarding Extremity: +B/L LE edema. no clubbing. neuro: awake and alert, OX3. Psych: calm and pleasant rectal: deferred EKG was personally showed AV paced Chest x-ray shows: Moderate cardiomegaly with mild pulmonary vascular congestion. Objective Vitals Vital Signs Date Temp Pulse Resp B/P (MAP) Pulse Ox O2 O2 Flow FiO2 Time Delivery Rate 03/12/19 97.9 70 18 110/56 94 07:37 (74) 03/11/19 Room Air 15:14 03/08/19 3.5 21:40 Intake and Output 03/11/19 03/11/19 03/12/19 1515:00 23:00 07:00 IntakeIntake Total 600 ml 400 ml OutputOutput Total 2650 ml 1200 ml BalanceBalance -2050 ml -800 ml Results/Medications Result Diagram: 03/12/19 0701 03/11/19 0619 Results 24 hrs Laboratory Tests Test 03/12/19 07:01 White Blood Count 4.9 Red Blood Count 2.77 L Hemoglobin 9.5 L Hematocrit 28.9 L Mean Corpuscular Volume 104.3 H Mean Corpuscular Hemoglobin 34.3 H Mean Corpuscular Hemoglobin Concent 32.9 Red Cell Distribution Width 17.3 H Platelet Count 184 Mean Platelet Volume 10.2 Immature Granulocytes % 0.400 Neutrophils % 71.4 Lymphocytes % 13.2 L Monocytes % 13.0 H Eosinophils % 1.6 Basophils % 0.4 Nucleated Red Blood Cells % 0.0 Immature Granulocytes # 0.020 Neutrophils # 3.5 Lymphocytes # 0.7 L Monocytes # 0.6 Eosinophils # 0.1 Basophils # 0.0 Nucleated Red Blood Cells # 0.0 Medications Current Medications IV Flush (NS 3 ml) 3 ml PER PROTOCOL IV ; Start 03/08/19 at 22:00 Acetaminophen (Tylenol Tab) 650 mg Q6H PRN PO .PAIN 1-3 OR TEMP; Start 03/08/19 at 22:00 Docusate Sodium (Colace) 100 mg Q12H PRN PO .CONSTIPATION; Start 03/08/19 at 22:00 Bisacodyl (Dulcolax) 5 mg DAILY PRN PO .CONSTIPATION; Start 03/08/19 at 22:00 Midodrine (Proamatine) 5 mg Q8 PO Last administered on 03/12/19at 06:08; Admin Dose 5 MG; Start 03/09/19 at 06:00 Furosemide (Lasix) 40 mg BID DIURETICS IV Last administered on 03/12/19at 06:08; Admin Dose 40 MG; Start 03/09/19 at 09:00 Dabigatran (PRADaxa) 75 mg BID PO Last administered on 03/11/19at 21:25; Admin Dose 75 MG; Start 03/09/19 at 21:00 Atorvastatin Calcium (Lipitor) 40 mg HS PO Last administered on 03/11/19at 21:24; Admin Dose 40 MG; Start 03/09/19 at 21:00 Metoprolol Succinate (Toprol Xl) 12.5 mg QHS PO ; Start 03/11/19 at 21:00 Acetaminophen/ Hydrocodone Bitart ([place] (5/325)) 1 tab Q6H PRN PO MODERATE PAIN LEVEL 4-6 Last administered on 03/11/19at 22:07; Admin Dose 1 TAB; Start 03/11/19 at 10:00 Heparin Sodium (Porcine) (Heparin (5000 Units/1ml)) 5,000 unit BID SC Last administered on 03/11/19 21:26; Admin Dose 5,000 UNIT; Start 03/11/19 at 21:00 Ceftriaxone Sodium 50 ml @ 100 mls/hr Q24H IVPB ; Start 03/12/19 at 09:00 Assessment/Plan Hospital Course (Demo Recall) 1. Syncope etiology unclear: ICD was interrogated on 03/10/2019 I personally reviewed which shows no evidence of DVT or any cardiac event that would correspond to his syncopal episode 2. Abnormal troponin secondary to below 3. Congestive heart failure : Acute on chronic secondary systolic and probably diastolic heart failure 3. History of severe ischemic cardiomyopathy ejection fraction 25% 5. Coronary artery disease with history of coronary bypass graft 6. History of multiple PCI 7. History of proximal atrial fibrillation currently in sinus/atrial paced rhythm 8. Hypotension 9. Rule out seizures Recommendations: Continue with Pradaxa. defibrillator was interrogated on 03/10/2019 which showed normal functioning ICD with no recent events cont low-dose beta-quinn Continue with a statin and adjust as needed ok to transfer to [place] insurance reason when bed available f/u renal fx. cont IV lasix for now if ok with renal Thank you for his referral. We will continue to follow along with you JESUS PEDRO MD [facility] JESUS PEDRO MD Mar 12, 2019 08:15
[2019-03-12] MEDS: CEFTRIAXONE 1 GM/50 ML (PMX) 50 ML IVPB SCH (08:35)
[2019-03-12] MEDS: DABIGATRAN 75 MG CAP PO SCH ×2 (08:35→20:51)
[2019-03-12] MEDS: HEPARIN 5,000 UNIT/1 ML VIAL SC SCH ×2 (08:43→20:55)
--- NOTE | 2019-03-12 09:13 | PN ---
DATE: 03/12/2019 SUBJECTIVE: The patient is stable, no events overnight. OBJECTIVE: VITAL SIGNS: Blood pressure is 110/56, respiration is 18, pulse 70, temperature 97.9. HEENT: Head is normocephalic. NECK: Supple. HEART: Regular rate. LUNGS: Show diminished breath sounds at the base. ABDOMEN: Soft, nontender to palpation without rebound or guarding. EXTREMITIES: Negative for clubbing, cyanosis. Trace edema. DERMATOLOGIC: No rashes. MUSCULOSKELETAL: No joint effusion. NEUROLOGIC: No change in exam. MEDICATIONS: The patient's medications have been reviewed. LABORATORY DATA: Has been reviewed. ASSESSMENT AND PLAN: 1. Nonoliguric acute kidney injury on top of chronic kidney disease with previous baseline creatinin e of 1.8 to 2.0 mg/dL. Etiology of current acute kidney injury is secondary to hemodynamics, cardior enal syndrome. The patient's renal function has improved with diuretic therapy. Renal function now at baseline. At this point, continue current treatment plan, supportive care, renally dose all meds. 2. Hyponatremia secondary to acute kidney injury, improved. 3. Anemia. Monitor hemoglobin and hematocrit levels. 4. Mineral bone disorder, monitor calcium and phosphorus levels. 5. Acute decompensated heart failure. The patient is clinically improving. Continue current diuret ic regimen, monitor renal function and electrolytes closely. Follow up with cardiology. 6. Hypotension, continue midodrine. 7. Lactic acidosis, resolved. 8. Non-STEMI. Continue medical management. Dictated By: MARY CHRISTENSEN/BRENT Conf#: [id number] DID#: [id number] CC: JESUS PEDRO MD; JOHNNIE KIRKLAND MD; TAYLOR GARAY MD;*EndCC*
[2019-03-12] MEDS: HYDROCODONE/APAP (5/325) TAB PO PRN (12:08)
[2019-03-12] MEDS ORDERED: COLC0.6T6 PO (12:13)
[2019-03-12] MEDS ORDERED: ALLO100T PO (12:13)
[2019-03-12] MEDS ORDERED: ALLOPURINOL 100 MG TAB PO SCH (13:30)
--- NOTE | 2019-03-12 14:24 | PDOCDIS ---
Discharge Instructions CONDITION [id number] Patient Condition: [id number] Stable HOME CARE INSTRUCTIONS: [id number] Diet Instructions: [id number] Low Fat /Cholesterol [id number] Special Diet: Krmrs4g low sodium ACTIVITY: [id number] Activity Restrictions: [id number] Slowly Increase Activity Rest between Activity FOLLOW UP/APPOINTMENTS Follow-up Plan Followup with your primary doctor within the next 1-2 weeks. Review your medication list with your nurse before leaving and if you need new prescriptions please let your nurse know. I have made changes to your home medications or given you new prescriptions, please let your primary doctor know as well. Stay compliant with your medications and report any side effects to your PCP or pharmacist. Return to the ER if you have any concerns and cannot reach your doctors or call your insurance company, they usually have a nurse that can help you. TAYLOR GARAY Mar 12, 2019 14:24
[2019-03-12] MEDS ORDERED: BUME1TAB PO (14:34)
[2019-03-12] MEDS ORDERED: AMOX1TAB10 PO (14:34)
[2019-03-12] MEDS ORDERED: DABI75CA2 PO (14:34)
[2019-03-12] MEDS ORDERED: MIDO5TAB PO (14:34)
[2019-03-12] MEDS ORDERED: DOCU-144 PO (14:34)
[2019-03-12] MEDS ORDERED: ATOR40TA68 PO (14:34)
--- NOTE | 2019-03-12 15:35 | DS ---
DATE OF ADMISSION: 03/08/2019 DATE OF DISCHARGE: 03/12/2019 FINAL DIAGNOSES: A 68-year-old male with reported history of end-stage heart failure who was brought in by ambulance after an episode of being altered and staring into space concerning for syncope as well as respiratory distress and managed for the followin. Acute hypoxic respiratory failure that required short course of NIPPV: Resolved. 2. Altered mentation secondary to #1: Resolved. 3. Congestive heart failure exacerbation, acute on chronic, systolic and diastolic: Much better compensated. 4. Chronic severe cardiomyopathy with severe left atrial enlargement, moderate right ventricular systolic dysfunction, ejection fraction of 25% and stage II diastolic dysfunction. 5. Status post pacemaker/AICD. 6. Moderate mitral valve regurgitation. 7. Status post non-ST elevation myocardial infarction secondary to congestive heart failure. 8. Lactic acidosis secondary to hypoperfusion, resolved. 9. Acute on chronic kidney disease with hyperkalemia: Improved, much better. 10. History of atrial fibrillation, status post "shock treatment." 11. Chronic megaloblastic anemia, stable. 12. Urinary tract infection, status post antibiotic therapy. 13. Low HDL. 14. Remote history of tobacco use, quit in 1992. CONSULTS ON THE CASE: 1. Cardiology, Jesus House MD 2. Nephrology, Roger Jamil DO INTERVENTIONS: The patient had multiple interventions includin. A 2D echocardiogram done on 03/09/2019. 2. He also had chest x-ray on 03/08/2019. 3. Renal ultrasound on 03/09/2019. 4. Lower extremity Dopplers that were negative for DVT on 03/09/2019. 5. Carotid Doppler that was incomplete study unfortunately on 03/09/2019. 6. Abdominal ultrasound was also done on 03/09/2019. Essentially, findings are summarized in the discharge summary as above. SHORT HOSPITALIZATION COURSE: Full details are available in chart for review. In summary, this patient was brought in by ambulance with altered mentation with syncopal episode and in respiratory distress and ended up requiring short course of NIPPV. He was found to have NSTEMI and severe CHF exacerbation. The patient is Do Not Resuscitate as well. He was treated with aggressive diuresis, supportive care and has done extremely well. He is doing so much better now and is stable for discharge. The patient is a [employer] member and it was thought that he will be transferred to [place]; however his transfer never did actually go through. At this time, he has been evaluated by myself and is stable for discharge. I am however awaiting cardiology and nephrology clearance to ensure no further inpatient intervention is required. DISCHARGE MEDICATIONS: For complete list, please review the patient's chart. Amendments will be done as recommended by specialist. DIET: Recommended diet is low calorie, low cholesterol, low fat, sodium diet. ACTIVITY: As tolerated. The patient usually ambulates with cane. FOLLOWUP: It is recommended to follow up with his doctor at [place] within a week of discharge. Time spent on coordination has been more than an hour. Dictated By: TAYLOR GARAY MD BA/NTS Conf#: [id number] DID#: [id number] CC: JOHNNIE KIRKLAND MD; JESUS HOUSE MD;*EndCC* MTDD
[2019-03-12] MEDS: BUMETANIDE 1 MG TAB PO SCH (17:34)
[2019-03-12] MEDS: ATORVASTATIN 40 MG TAB PO SCH (20:51)
[2019-03-12] MEDS: METOPROLOL (XL) 25 MG TAB PO SCH (20:57)
[2019-03-13] VITALS (12 sets, daily range): BP systolic 94–156; BP diastolic 51–82; PULSE 68–98; RESP 18–20
[2019-03-13] MEDS: HYDROCODONE/APAP (5/325) TAB PO PRN ×2 (04:21→14:49)
[2019-03-13] MEDS ORDERED: COLCHICINE 0.6 MG TAB PO PRN (04:30)
[2019-03-13] MEDS: BUMETANIDE 1 MG TAB PO SCH ×2 (06:16→17:48)
[2019-03-13] MEDS: MIDODRINE 5 MG TAB PO SCH ×2 (06:16→14:54)
[2019-03-13] MEDS: DABIGATRAN 75 MG CAP PO SCH ×2 (08:44→21:05)
[2019-03-13] MEDS: ALLOPURINOL 100 MG TAB PO SCH ×2 (08:44→21:05)
[2019-03-13] MEDS: CEFTRIAXONE 1 GM/50 ML (PMX) 50 ML IVPB SCH (08:44)
[2019-03-13] MEDS: HEPARIN 5,000 UNIT/1 ML VIAL SC SCH ×2 (08:57→21:15)
--- NOTE | 2019-03-13 09:01 | PN ---
DATE: 03/13/2019 SUBJECTIVE: The patient is stable, complaining about gouty arthritis pain in his toe. No other even ts noted. OBJECTIVE: VITAL SIGNS: Blood pressure is 106/56, pulse 77, respirations 20, temperature 97.4. HEENT: Head is normocephalic. NECK: Supple. HEART: Regular rate. LUNGS: Show diminished breath sounds at the base. ABDOMEN: Soft, nontender to palpation without rebound or guarding. EXTREMITIES: Negative for clubbing, cyanosis. Trace edema. MUSCULOSKELETAL: Positive tenderness to palpation in lower toe. NEUROLOGIC: No change in exam. MEDICATIONS: Reviewed. LABORATORY DATA: From 03/13/2019 was reviewed. ASSESSMENT AND PLAN: 1. Nonoliguric acute kidney injury on top of chronic kidney disease with previous baseline creatinin e of 1.8 to 2 mg/dL. Etiology of acute kidney injury is secondary to hemodynamics, cardiorenal syndr ome. The patient's renal function has improved with diuretic therapy. Currently at baseline. Portia aimee current treatment plan, supportive care, renally dose all medicines. 2. Hypernatremia, etiology is secondary to acute kidney injury. We would recommend to limit free wa ter intake and monitor. 3. Anemia. Monitor hemoglobin and hematocrit levels. 4. Mineral bone disorder. Continue to monitor calcium and phosphorus levels. 5. Acute decompensated heart failure. The patient is clinically improving. Continue current diuret ic regimen. 6. Acute gouty flare. Continue medical management. 7. Hypotension. Continue midodrine. 8. Non-ST elevation myocardial infarction. Continue current treatment plan. Dictated By: MARY CHRISTENSEN/BRENT Conf#: [id number] DID#: [id number] CC: TAYLOR GRAAY MD; JESUS PEDRO MD; JOHNNIE KIRKLAND MD;*EndCC*
--- NOTE | 2019-03-13 10:38 | PN ---
Date/Time of Note Date/Time of Note DATE: 03/13/19 TIME: 10:35 Assessment/Plan VTE Prophylaxis Risk score (from Nsg)>0 risk: 5 Pharmacological prophylaxis: heparin Lines/Catheters IV Catheter Type (from Nrsg): Saline Lock Urinary Cath still in place: No Assessment/Plan Hospital Course Subjective : toe pain, thinks its his arthritis flaring, cardiology did not clear patient for discharge yesterday objective : General: A&O x3, answering questions appropriately, obese HEENT: NC/ AT. PERRL. EOM intact Neck: JVD CVS: irregular, . no pain on chest wall palpation Lungs: CTA b/l. no wheezing or rhonchi Abd: soft, nontender, +BS Ext: moving all extremities skin: erickson LE edema with chronic skin changes : nicole to bedside drainage with good output assessment and plan: 68 yo M with reported hx of endstage HF who was BIBA after a syncopal episode (altered, staring into space) with resp distress managed as follows : Acute hypoxic resp failure that required short course on NIPPV: improved Syncopal episode 2/2 #1 CHF exacerbation, acute on chronic, systolic and diastolic Chronic severe CM with -severe enlargement of left atrium and moderate enlargement of right atrium, moderate right ventricular systolic dysfunction / Severe enlargement of right ventricle. -Ejection fraction is visually estimated at 25 % and Stage II diastolic dy sfunction -S/p Pacemaker / AICD Moderate mitral valve regurgitation. NSTEMI vs troponin leak CAD with hx of MIx2, CABG Lactic acidosis likely 2/2 hypoperfusion MAYDA on CKD with hyperkalemia hx of afib s/p "shock treatment:" Megaloblastic anemia ' UTI low HDL Hyponatremia , likely dilutional Quit smoking 1992 DNR PLAN: Continue tele, diuresis and empiric abx Cardiology preferring that patient be transferred to [facility] for further workup per his primary binding end stitcher. admitting manager notified. Awaiting either cardiology clearance for discharge or transfer to [place]. Continue serial labs PT eval noted, recommending front wheel walker for now and not cane. supportive care Result Diagram: 03/13/19 0554 03/13/19 0554 Results 24hrs Laboratory Tests Test 03/13/19 05:54 White Blood Count 4.5 L Red Blood Count 2.49 L Hemoglobin 8.6 L Hematocrit 26.2 L Mean Corpuscular Volume 105.2 H Mean Corpuscular Hemoglobin 34.5 H Mean Corpuscular Hemoglobin Concent 32.8 Red Cell Distribution Width 17.2 H Platelet Count 172 Mean Platelet Volume 10.1 Immature Granulocytes % 0.700 H Neutrophils % 68.4 Lymphocytes % 12.6 L Monocytes % 16.6 H Eosinophils % 1.3 Basophils % 0.4 Nucleated Red Blood Cells % 0.0 Immature Granulocytes # 0.030 Neutrophils # 3.1 Lymphocytes # 0.6 L Monocytes # 0.7 Eosinophils # 0.1 Basophils # 0.0 Nucleated Red Blood Cells # 0.0 Sodium Level 134 L Potassium Level 3.8 Chloride Level 96 L Carbon Dioxide Level 27 Anion Gap 11 Blood Urea Nitrogen 63 H Creatinine 1.52 H Est Glomerular Filtrat Rate mL/min 46 L Glucose Level 90 Calcium Level 8.9 Phosphorus Level 3.7 Magnesium Level 2.2 Exam/Review of Systems Exam Vitals Vital Signs Date Temp Pulse Resp B/P (MAP) Pulse Ox O2 O2 Flow FiO2 Time Delivery Rate 03/13/19 78 08:39 03/13/19 97.4 20 106/56 93 08:02 (73) 03/13/19 Room Air 04:00 Intake and Output 03/12/19 03/12/19 03/13/19 1515:00 23:00 07:00 IntakeIntake Total 650 ml OutputOutput Total 900 ml 850 ml BalanceBalance -900 ml -200 ml Results Results 24hrs Laboratory Tests Test 03/13/19 05:54 White Blood Count 4.5 L Red Blood Count 2.49 L Hemoglobin 8.6 L Hematocrit 26.2 L Mean Corpuscular Volume 105.2 H Mean Corpuscular Hemoglobin 34.5 H Mean Corpuscular Hemoglobin Concent 32.8 Red Cell Distribution Width 17.2 H Platelet Count 172 Mean Platelet Volume 10.1 Immature Granulocytes % 0.700 H Neutrophils % 68.4 Lymphocytes % 12.6 L Monocytes % 16.6 H Eosinophils % 1.3 Basophils % 0.4 Nucleated Red Blood Cells % 0.0 Immature Granulocytes # 0.030 Neutrophils # 3.1 Lymphocytes # 0.6 L Monocytes # 0.7 Eosinophils # 0.1 Basophils # 0.0 Nucleated Red Blood Cells # 0.0 Sodium Level 134 L Potassium Level 3.8 Chloride Level 96 L Carbon Dioxide Level 27 Anion Gap 11 Blood Urea Nitrogen 63 H Creatinine 1.52 H Est Glomerular Filtrat Rate mL/min 46 L Glucose Level 90 Calcium Level 8.9 Phosphorus Level 3.7 Magnesium Level 2.2 Medications Medication Current Medications IV Flush (NS 3 ml) 3 ml PER PROTOCOL IV ; Start 03/08/19 at 22:00 Acetaminophen (Tylenol Tab) 650 mg Q6H PRN PO .PAIN 1-3 OR TEMP; Start 03/08/19 at 22:00 Docusate Sodium (Colace) 100 mg Q12H PRN PO .CONSTIPATION; Start 03/08/19 at 22:00 Bisacodyl (Dulcolax) 5 mg DAILY PRN PO .CONSTIPATION; Start 03/08/19 at 22:00 Midodrine (Proamatine) 5 mg Q8 PO Last administered on 03/13/19 06:16; Admin Dose 5 MG; Start 03/09/19 at 06:00 Dabigatran (PRADaxa) 75 mg BID PO Last administered on 03/13/19 08:44; Admin Dose 75 MG; Start 03/09/19 at 21:00 Atorvastatin Calcium (Lipitor) 40 mg HS PO Last administered on 03/12/19at 20: 51; Admin Dose 40 MG; Start 03/09/19 at 21:00 Metoprolol Succinate (Toprol Xl) 12.5 mg QHS PO ; Start 03/11/19 at 21:00 Acetaminophen/ Hydrocodone Bitart ([place] (5/325)) 1 tab Q6H PRN PO MODERATE PAIN LEVEL 4-6 Last administered on 03/13/19 04:21; Admin Dose 1 TAB; Start 03/11/19 at 10:00 Heparin Sodium (Porcine) (Heparin (5000 Units/1ml)) 5,000 unit BID SC Last administered on 03/13/19 08:57; Admin Dose 5,000 UNIT; Start 03/11/19 at 21:00 Ceftriaxone Sodium 50 ml @ 100 mls/hr Q24H IVPB Last administered on 03/13/19 08:44; Admin Dose 100 MLS/HR; Start 03/12/19 at 09:00 Bumetanide (Bumex) 1 mg BID DIURETICS PO Last administered on 03/13/19 06:16; Admin Dose 1 MG; Start 03/12/19 at 18:00 Allopurinol (Zyloprim) 100 mg BID PO Last administered on 03/13/19at 08:44; Admin Dose 100 MG; Start 03/13/19 at 09:00 Colchicine (Colchicine) 0.6 mg PRN PRN PO GOUT PAIN Last administered on 11/19at 04:38; Admin Dose 0.6 MG; Start 03/13/19 at 04:30 TAYLOR GARAY Mar 13, 2019 10:38
--- NOTE | 2019-03-13 17:51 | CONS ---
Consult Date/Type/Reason Admit Date/Time Mar 08, 2019 at 20:39 Initial Consult Date 03/09/19 Type of Consultation: cv Requesting Provider: JOHNNIE KIRKLAND Date/Time of Note DATE: 03/13/19 TIME: 17:49 Subjective Cardiology follow-up progress note Subjective: Discussed with the staff and telemetry was reviewed. Patient remains mostly in atrial paced rhythm No chest pain or pressure no syncope no presyncope breathing much better today c/o severe gouty pain in his leg Objective: General: Obese gentleman no acute distress HEENT: NC/AT. pupils are equal. round. NECK: . no stridor. CV: RRR. systolic murmur; no gallop or rubs. PULM: no wheezing + rhonchi. GI: SOFT, NT, ND, no rebound or guarding Extremity: improving B/L LE edema. no clubbing. neuro: awake and alert, OX3. Psych: calm and pleasant rectal: deferred EKG was personally showed AV paced Chest x-ray shows: Moderate cardiomegaly with mild pulmonary vascular congestion. Objective Vitals Vital Signs Date Temp Pulse Resp B/P (MAP) Pulse Ox O2 O2 Flow FiO2 Time Delivery Rate 03/13/19 70 16:24 03/13/19 98/57 (71) 14:55 03/13/19 98.4 20 97 14:02 03/13/19 Room Air 04:00 Intake and Output 03/12/19 03/12/19 03/13/19 1515:00 23:00 07:00 IntakeIntake Total 650 ml OutputOutput Total 900 ml 850 ml BalanceBalance -900 ml -200 ml Results/Medications Result Diagram: 03/13/19 0554 03/13/19 0554 Results 24 hrs Laboratory Tests Test 03/13/19 05:54 White Blood Count 4.5 L Red Blood Count 2.49 L Hemoglobin 8.6 L Hematocrit 26.2 L Mean Corpuscular Volume 105.2 H Mean Corpuscular Hemoglobin 34.5 H Mean Corpuscular Hemoglobin Concent 32.8 Red Cell Distribution Width 17.2 H Platelet Count 172 Mean Platelet Volume 10.1 Immature Granulocytes % 0.700 H Neutrophils % 68.4 Lymphocytes % 12.6 L Monocytes % 16.6 H Eosinophils % 1.3 Basophils % 0.4 Nucleated Red Blood Cells % 0.0 Immature Granulocytes # 0.030 Neutrophils # 3.1 Lymphocytes # 0.6 L Monocytes # 0.7 Eosinophils # 0.1 Basophils # 0.0 Nucleated Red Blood Cells # 0.0 Sodium Level 134 L Potassium Level 3.8 Chloride Level 96 L Carbon Dioxide Level 27 Anion Gap 11 Blood Urea Nitrogen 63 H Creatinine 1.52 H Est Glomerular Filtrat Rate mL/min 46 L Glucose Level 90 Calcium Level 8.9 Phosphorus Level 3.7 Magnesium Level 2.2 Home Meds Active Scripts Docusate Sodium* (Colace*) 100 Mg Capsule, 100 MG PO Q12H, #60 CAP [facility] 03/12/19 Bumetanide* (Bumetanide*) 1 Mg Tablet, 2 MG PO BID DIURETICS, #120 TAB [facility] 03/12/19 Atorvastatin* (Atorvastatin*) 40 Mg Tablet, 40 MG PO HS, #30 TAB 2 Refills [facility] 03/12/19 Dabigatran Etexilate Mesylate* (Pradaxa*) 75 Mg Cap, 75 MG PO BID, #60 CAP [facility] 03/12/19 Amoxicillin/Potassium Clav (Amox-Clav 875-125 mg Tablet) 875-125 mg Tab, 1 TAB PO BID, #14 TAB Prov[facility] 03/12/19 Midodrine* (Midodrine*) 5 Mg Tablet, 5 MG PO Q8 for 30 Days, #90 TAB [facility] 03/12/19 Reported Medications Allopurinol* (Allopurinol*) 100 Mg Tablet, 100 MG PO DAILY, TAB 03/12/19 Colchicine* (Colcrys*) 0.6 Mg Tablet, 0.6 MG PO, TAB 03/12/19 Medications Current Medications IV Flush (NS 3 ml) 3 ml PER PROTOCOL IV ; Start 03/08/19 at 22:00 Acetaminophen (Tylenol Tab) 650 mg Q6H PRN PO .PAIN 1-3 OR TEMP; Start 03/08/19 at 22:00 Docusate Sodium (Colace) 100 mg Q12H PRN PO .CONSTIPATION; Start 03/08/19 at 22:00 Bisacodyl (Dulcolax) 5 mg DAILY PRN PO .CONSTIPATION; Start 03/08/19 at 22:00 Midodrine (Proamatine) 5 mg Q8 PO Last administered on 03/13/19 14:54; Admin Dose 5 MG; Start 03/09/19 at 06:00 Dabigatran (PRADaxa) 75 mg BID PO Last administered on 03/13/19 08:44; Admin Dose 75 MG; Start 03/09/19 at 21:00 Atorvastatin Calcium (Lipitor) 40 mg HS PO Last administered on 03/12/19 20:51; Admin Dose 40 MG; Start 03/09/19 at 21:00 Metoprolol Succinate (Toprol Xl) 12.5 mg QHS PO ; Start 03/11/19 at 21:00 Acetaminophen/ Hydrocodone Bitart ([place] (5/325)) 1 tab Q6H PRN PO MODERATE PAIN LEVEL 4-6 Last administered on 03/13/19 14:49; Admin Dose 1 TAB; Start 03/11/19 at 10:00 Heparin Sodium (Porcine) (Heparin (5000 Units/1ml)) 5,000 unit BID SC Last administered on 03/13/19 08:57; Admin Dose 5,000 UNIT; Start 03/11/19 at 21:00 Ceftriaxone Sodium 50 ml @ 100 mls/hr Q24H IVPB Last administered on 03/13/19 08:44; Admin Dose 100 MLS/HR; Start 03/12/19 at 09:00 Bumetanide (Bumex) 1 mg BID DIURETICS PO Last administered on 03/13/19 17:48; Admin Dose 1 MG; Start 03/12/19 at 18:00 Allopurinol (Zyloprim) 100 mg BID PO Last administered on 03/13/19 08:44; Admin Dose 100 MG; Start 03/13/19 at 09:00 Colchicine (Colchicine) 0.6 mg PRN PRN PO GOUT PAIN Last administered on 03/13/19 04:38; Admin Dose 0.6 MG; Start 03/13/19 at 04:30 Assessment/Plan Hospital Course (Demo Recall) 1. Syncope etiology unclear: ICD was interrogated on 03/10/2019 I personally reviewed which shows no evidence of DVT or any cardiac event that would correspond to his syncopal episode 2. Abnormal troponin secondary to below 3. Congestive heart failure : Acute on chronic secondary systolic and probably diastolic heart failure 3. History of severe ischemic cardiomyopathy ejection fraction 25% 5. Coronary artery disease with history of coronary bypass graft 6. History of multiple PCI 7. History of proximal atrial fibrillation currently in sinus/atrial paced rhythm 8. Hypotension 9. Rule out seizures Recommendations: Continue with Pradaxa. defibrillator was interrogated on 03/10/2019 which showed normal functioning ICD with no recent events cont low-dose beta-quinn Continue with a statin and adjust as needed ok to transfer to [place] insurance reason when bed available f/u renal fx. diuretics will add losartan tomorrow it is better for pt to be transferred to [place] for at least continuity of care but so far he has significantly improved Thank you for his referral. We will continue to follow along with you as needed. JESUS PEDRO MD [facility] JESUS PEDRO MD Mar 13, 2019 17:51
[2019-03-13] MEDS: METOPROLOL (XL) 25 MG TAB PO SCH (21:00)
[2019-03-13] MEDS: ATORVASTATIN 40 MG TAB PO SCH (21:05)
[2019-03-14] VITALS (10 sets, daily range): BP systolic 84–108; BP diastolic 3–58; PULSE 69–70; RESP 18–20
[2019-03-14] MEDS: MIDODRINE 5 MG TAB PO SCH ×3 (00:51→15:53)
[2019-03-14] MEDS: HYDROCODONE/APAP (5/325) TAB PO PRN ×2 (03:21→17:19)
[2019-03-14] MEDS: BUMETANIDE 1 MG TAB PO SCH ×2 (06:49→17:49)
--- NOTE | 2019-03-14 08:49 | PN ---
DATE: 03/14/2019 SUBJECTIVE: The patient is stable, no events overnight. OBJECTIVE: VITAL SIGNS: Blood pressure is 105/55, pulse 70, respirations 20, temperature 98.6. HEENT: Head is normocephalic. NECK: Supple. HEART: Regular rate. LUNGS: Show diminished breath sounds at the base. ABDOMEN: Soft, nontender to palpation. No rebound or guarding. EXTREMITIES: Negative for clubbing, cyanosis, no edema. DERMATOLOGIC: No rashes. MUSCULOSKELETAL: No joint effusion. NEUROLOGIC: No change in exam. MEDICATIONS: The patient's medications have been reviewed. LABORATORY DATA: The laboratory data from 03/14/2019 was reviewed. ASSESSMENT AND PLAN: 1. Nonoliguric acute kidney injury on top of chronic kidney disease with previous baseline creatinin e of 1.8 to 2.0 mg per deciliter. Etiology of MAYDA is secondary to hemodynamics, cardiorenal syndrome. The patient's renal function has improved, currently back at baseline. At this point, continue cur rent treatment plans, supportive care, renally dose all medication. 2. Hyponatremia, improved. Continue to monitor. 3. Anemia. Monitor hemoglobin and hematocrit levels. 4. Mineral bone disorder, monitor calcium and phosphorus levels. 5. Acute decompensated heart failure, clinically improving. Continue current diuretic regimen. Con tinue medical management. 6. Acute gouty flare, improving. Continue current treatment plan. 7. Hypotension. Continue midodrine. 8. Elevated troponin, continue current treatment plan per cardiology. Dictated By: MARY CHRISTENSEN/NTS Conf#: [id number] DID#: [id number] CC: TAYLOR GARAY MD; JOHNNIE KIRKLAND MD; JESUS PEDRO MD;*EndCC*
[2019-03-14] MEDS ORDERED: LOSARTAN 25 MG TAB PO SCH (09:00)
[2019-03-14] MEDS: DABIGATRAN 75 MG CAP PO SCH (09:05)
[2019-03-14] MEDS: CEFTRIAXONE 1 GM/50 ML (PMX) 50 ML IVPB SCH (09:06)
[2019-03-14] MEDS: ALLOPURINOL 100 MG TAB PO SCH (09:06)
[2019-03-14] MEDS: HEPARIN 5,000 UNIT/1 ML VIAL SC SCH (09:14)
[2019-03-14] MEDS ORDERED: METO-335 PO ×2 (12:43→12:51)
[2019-03-14] MEDS ORDERED: LOSA25TA2 PO ×2 (12:43→12:51)
--- NOTE | 2019-03-14 13:02 | DS ---
Date/Time of Note Date/Time of Note DATE: 03/14/19 TIME: 12:56 Discharge Summary Admission/Discharge Info Admit Date/Time Mar 08, 2019 at 20:39 Discharge Date/Time Discharge Diagnosis 1. Syncopal episode, likely hypotensive etiology. Ruled out for ACS/vascular events. 2. Severe cardiomyopathy with low ejection fraction, status post ICD placed. 3. Combined systolic and diastolic heart failure 4. Dyslipidemia 5. Paroxysmal atrial fibrillation 6.Status post sepsis with UTI 7.Chronic anemia 8.Coronary artery disease with status post CABG 9.Status post liver secondary to congestive heart failure exacerbation. 10.Moderate mitral valve regurgitation. 11.Chronic kidney disease. Patient Condition: Stable Consults ,cards Procedures 03/09/2019. 2D echocardiogram Conclusions: There is severe enlargement of left atrium. There is moderate enlargement of right atrium. Moderate right ventricular systolic dysfunction. Severe enlargement of right ventricle. Pacemaker right heart. Left ventricular wall thickness upper limits of normal. Severe enlargement of left ventricle cavity. Severe global left ventricular systolic dysfunction. Paradoxical septal motion consistent with RV pacemaker. Ejection fraction is visually estimated at 25 %. Tissue Doppler/Mitral Doppler indices are consistent with pseudonormalization with mildly elevated left atrial pressure (Stage II diastolic dysfunction). Mild mitral leaflet calcification. Mild mitral annular calcification. Moderate mitral valve regurgitation. The regurgitation jet is eccentrically directed which may underestimate the severity of mitral regurgitation. No hemodynamically significant aortic stenosis by doppler. Aortic cusps appear mildly calcified. Trace aortic valve regurgitation. Normal appearance of the tricuspid valve. Estimated peak PA systolic pressure 42 mmHg. There is moderate tricuspid regurgitation. Dilated IVC without respiratory collapse consistent with elevated right atrial pressure. Electronically Signed By: Tejas House 2019-03-09 15:06:32 PDT Hospital Course This is a 68-year-old male with a history of severe cardiomyopathy with ejection fraction 25%, that is post ICD placed, paroxysmal atrial fibrillation, chronic kidney disease, congestive heart failure, coronary artery disease with a history of coronary artery bypass graft surgery, who his primary insurance is through [employer], admitted at [facility] with syncopal episode. Patient had extensive cardiac and vascular workup for syncopal etiology and was unremarkable. Patient's blood pressure was low on arrival, likely cause syncopal episode. Hospitalization was also noted for a UTI which was treated. Patient was noted in acute on chronic systolic and diastolic congestive heart failure on presentation for which cardiology recommended beta blockers,ARB as blood pressure permits. Patient was resumed on Pradaxa. Patient's heart rate remained stable. ICD was interrogated and seemed full functioning without any arrhythmia recorded to explain syncopal episode. He was also given a short course of midodrine secondary to profound hypotension in the beginning which then stabilized and he was able to tolerate low-dose beta-blockers and ARB. As initial plan was to transfer patient for [facility] for continued care, his symptoms improved with no definitive cause of syncope identified. Patient requested discharge as he was not willing to go to [facility] for further care and request discharge home. He will follow-up with his primary care physician and [facility] station mechanic helper after discharge. Patient currently stable with stable vital signs, stable labs, stable volume status. He was given medication prescriptions recommended by station mechanic helper including beta-blockers and losartan and I have placed a hold parameter for patient when to hold his blood pressure medications to avoid hypotension which he verbalized understanding. Patient will follow up with his [facility] doctors on Saturday. Approximately 60 minutes was spent in coordinating the discharge on this patient. Patient was seen in collaboration with Dr. Zavala. Home Meds Active Scripts Metoprolol Succinate* (Toprol XL*) 25 Mg Tab.sr.24h, 12.5 MG PO QHS, #30 TAB holf if heart rate <60 or sbp<100 Prov:LEATHA BAXTER NP 03/14/19 Losartan Potassium* (Cozaar*) 25 Mg Tablet, 12.5 MG PO DAILY, #30 TAB hold if sbp<110 Prov:LEATHA BAXTER NP 03/14/19 Docusate Sodium* (Colace*) 100 Mg Capsule, 100 MG PO Q12H, #60 CAP Prov:TAYLOR GARAY 03/12/19 Bumetanide* (Bumetanide*) 1 Mg Tablet, 2 MG PO BID DIURETICS, #120 TAB Prov:TAYLOR GARAY. 03/12/19 Atorvastatin* (Atorvastatin*) 40 Mg Tablet, 40 MG PO HS, #30 TAB 2 Refills Prov:TAYLOR GARAY. 03/12/19 Dabigatran Etexilate Mesylate* (Pradaxa*) 75 Mg Cap, 75 MG PO BID, #60 CAP Prov:TAYLOR GARAY 03/12/19 Amoxicillin/Potassium Clav (Amox-Clav 875-125 mg Tablet) 875-125 mg Tab, 1 TAB PO BID, #14 TAB Prov:TAYLOR GARAY. 03/12/19 Reported Medications Allopurinol* (Allopurinol*) 100 Mg Tablet, 100 MG PO DAILY, TAB 03/12/19 Colchicine* (Colcrys*) 0.6 Mg Tablet, 0.6 MG PO, TAB 03/12/19 Follow-up Plan Followup with your primary doctor within the next 1-2 weeks. Review your medication list with your nurse before leaving and if you need new prescriptions please let your nurse know. I have made changes to your home medications or given you new prescriptions, please let your primary doctor know as well. Stay compliant with your medications and report any side effects to your PCP or pharmacist. Return to the ER if you have any concerns and cannot reach your doctors or call your insurance company, they usually have a nurse that can help you. Primary Care Provider Not On Staff Doctor Pending Labs Laboratory Tests Test 03/14/19 06:16 03/14/19 06:17 Sodium Level 137 mmol/L (135-144) Potassium Level 3.7 mmol/L (3.5-5.1) Chloride Level 99 mmol/L (97-110) Carbon Dioxide Level 30 mmol/L (21-31) Anion Gap 8 (5-13) Blood Urea Nitrogen 62 mg/dl (7-20) Creatinine 1.63 mg/dl (0.61-1.24) Est Glomerular Filtrat 42 mL/min (>60) Rate mL/min Glucose Level 92 mg/dl (70-220) Calcium Level 9.1 mg/dl (8.4-10.2) White Blood Count 4.5 10^3/ul (4.8-10.8) Red Blood Count 2.57 10^6/ul (4.70-6.10) Hemoglobin 8.8 g/dl (14.0-18.0) Hematocrit 27.0 % (42.0-52.0) Mean Corpuscular Volume 105.1 fl (82.0-101.0) Mean Corpuscular Hemoglobin 34.2 pg (29.0-33.0) Mean Corpuscular 32.6 g/dl (32.0-37.0) Hemoglobin Concent Red Cell Distribution Width 17.0 % (11.5-14.5) Platelet Count 180 10^3/UL (140-415) Mean Platelet Volume 10.1 fl (7.4-10.4) Immature Granulocytes % 0.200 % (0.001-0.429) Neutrophils % 66.7 % (39.0-77.0) Lymphocytes % 14.8 % (15.0-51.0) Monocytes % 16.8 % (0.0-11.0) Eosinophils % 1.1 % (0.0-7.0) Basophils % 0.4 % (0.0-2.0) Nucleated Red Blood Cells % 0.0 /100WBC (0.0-0.0) Immature Granulocytes # 0.010 10^3/ul (0.0-0.031) Neutrophils # 3.0 10^3/ul (1.6-7.5) Lymphocytes # 0.7 10^3/ul (0.8-2.9) Monocytes # 0.8 10^3/ul (0.3-0.9) Eosinophils # 0.1 10^3/ul (0.0-0.5) Basophils # 0.0 10^3/ul (0.0-0.1) Nucleated Red Blood Cells # 0.0 10^3/ul (0.0-0.0) Prothrombin Time 20.8 Sec (11.9-14.9) Prothrombin Time Ratio 1.6 INR International 1.78 Normalized Ratio Activated 52.4 Sec (23.0-35.0) Partial Thromboplast Time LEATHA BAXTER NP Mar 14, 2019 13:02
== END 2019-03-14 18:12 | disposition home or self-care (01) | DRG 871 ==
LOC: E/R 19:20 → TEL 20:39
PROVIDERS: ADMIT Family Medicine; ATTEND Family Medicine
PROC: 5A09357 Assistance with Respiratory Ventilation, Less than 24 Consecutive Hours, Continuous Positive Airway Pressure (ICD-10-PCS; principal; 2019-03-08)
DX: A41.9 Sepsis, unspecified organism (principal); I21.4 Non-ST elevation (NSTEMI) myocardial infarction; J96.01 Acute respiratory failure with hypoxia; I50.43 Acute on chronic combined systolic (congestive) and diastolic (congestive) heart failure; I13.0 Hypertensive heart and chronic kidney disease with heart failure and stage 1 through stage 4 chronic kidney disease, or unspecified chronic kidney disease; E87.2 Acidosis; E87.1 Hypo-osmolality and hyponatremia; Z68.42 Body mass index [BMI] 45.0-49.9, adult; N17.9 Acute kidney failure, unspecified; N39.0 Urinary tract infection, site not specified; E11.22 Type 2 diabetes mellitus with diabetic chronic kidney disease; N18.3 Chronic kidney disease, stage 3 (moderate); E11.40 Type 2 diabetes mellitus with diabetic neuropathy, unspecified; J44.9 Chronic obstructive pulmonary disease, unspecified; I48.0 Paroxysmal atrial fibrillation; R55 Syncope and collapse; D63.1 Anemia in chronic kidney disease; E66.01 Morbid (severe) obesity due to excess calories; I25.10 Atherosclerotic heart disease of native coronary artery without angina pectoris; I25.5 Ischemic cardiomyopathy; I95.89 Other hypotension; Z66 Do not resuscitate; E78.5 Hyperlipidemia, unspecified; I34.0 Nonrheumatic mitral (valve) insufficiency; E87.5 Hyperkalemia; M10.9 Gout, unspecified; I25.2 Old myocardial infarction; Z95.810 Presence of automatic (implantable) cardiac defibrillator; Z95.1 Presence of aortocoronary bypass graft
CPT/HCPCS: 36415; 71045; 76705; 76775; 80048; 80053; 80061; 81001; 81003; 82043; 82550; 82553; 82803; 82962; 83036; 83605; 83735; 83880; 84100; 84155; 84300; 84443; 84484; 85025; 85378; 85610; 85730; 87086; 93005; 93306; 93880; 93970; 96374; 96375; 97163; J0692; J0696; J1644; J1940; J2270; J2405; J3370; J7030; P9047